=== PATIENT | female | born 1955 | race Hispanic/Latino ===

== ENCOUNTER 2016-12-10 09:43 | Inpatient (IN) | payer OTHER ==
--- NOTE | 2016-12-10 10:52 | C.PDOC ---
History Of Present Illness 61 y/o female pmhx vertigo, HTN sent to ED by PMD for evaluation of persistent dizziness and hypotension. Pt was evaluated inpatient for the same, discharged few weeks ago. Pt denies fever, chills, headache, SOB or any other complaints. Time Seen by Provider: 12/10/16 10:43 Chief Complaint (Nursing): Dizziness/Lightheaded History Per: Patient History/Exam Limitations: no limitations Onset/Duration Of Symptoms: Days Current Symptoms Are (Timing): Still Present Possible Causative Factor(s): Vertigo Fall Associated With With Symptoms: No Severity: Mild Recent travel outside of the [place]: No - Symptoms Of CVA Recent Head Trauma: No Past Medical History Reviewed: Historical Data, Nursing Documentation, Vital Signs Vital Signs: Last Vital Signs Temp 97.5 F L 12/10/16 14:36 Pulse 56 L 12/10/16 14:36 Resp 20 12/10/16 14:36 BP 136/73 12/10/16 14:36 Pulse Ox 100 12/10/16 14:50 - Medical History PMH: HTN, Hypothyroidism Surgical History: Cholecystectomy (2004) - [facility] Procedures MEASURE OF ARTERIAL PRESSURE, PERIPHERAL, 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 Constitutional: Negative for: Fever, Chills Respiratory: Negative for: Shortness of Breath Neurological: Positive for: Dizziness. Negative for: Headache Physical Exam - Physical Exam Appears: Non-toxic, No Acute Distress Skin: Warm, Dry, No Rash Head: Atraumatic, Normacephalic Ear(s): Bilateral: Normal Neck: Normal ROM, Supple Chest: Symmetrical Cardiovascular: Rhythm Regular, No Murmur Respiratory: Normal Breath Sounds, No Rales, No Rhonchi, No Wheezing Extremity: Normal ROM Extremity: Bilateral: Atraumatic Neurological/Psych: Oriented x3, Normal Speech, Normal Cognition, Normal Cranial Nerves, Normal Motor, Normal Sensation Gait: Steady ED Course And Treatment - Laboratory Results Result Diagrams: 12/10/16 11:31 12/10/16 11:31 O2 Sat by Pulse Oximetry: 100 (on room air) Pulse Ox Interpretation: Normal Medical Decision Making Medical Decision Making: Plan: EKG, labs, UA, IV fluids- pt sent in for eval by pmd [id number]: discussed with pmd, accepts for obs. Disposition - Disposition Disposition: HOSPITALIZED Disposition Time: 14:49 Condition: STABLE - Clinical Impression Clinical Impression: Chest pain - Scribe Statement The provider has reviewed the documentation as recorded by the Jennifer Solis Provider Attestation: All medical record entries made by the Jennifer were at my direction and personally dictated by me. I have reviewed the chart and agree that the record accurately reflects my personal performance of the history, physical exam, medical decision making, and the department course for this patient. I have also personally directed, reviewed, and agree with the discharge instructions and disposition. Decision To Admit - Pt Status Changed To: Hospital Disposition Of: Observation - . Bed Request Type: Regular Admitting Physician: Roderick Pool Patient Diagnosis: Dizziness, Vertigo
[2016-12-10 11:35] LABS: BASO # 0.1 K/uL (0.0-0.2); BASO % 1.1 % (0.0-2.0); EOS # 0.3 K/uL (0.0-0.7); EOS % 4.1 % (0.0-4.0); HEMATOCRIT 38.7 % (34.0-47.0); MEAN CELL VOLUME 85.6 fL (81.0-99.0); MEAN CORPUSCULAR HEMOGLOBIN 29.3 pg (27.0-31.0); MEAN CORPUSCULAR HGB CONC 34.2 g/dL (33.0-37.0); MEAN PLATELET VOLUME 7.4 fL (7.2-11.7); MONO # 0.7 K/uL (0.0-0.8); MONO % 8.2 % (0.0-10.0); NRBC % 0.1 % (0.0-2.0); RED CELL DISTRIBUTION WIDTH 13.3 % (11.5-14.5); WHITE BLOOD COUNT 8.1 K/uL (4.8-10.8)
[2016-12-10 11:41] LABS: URINE BILIRUBIN NEGATIVE (NEGATIVE); URINE BLOOD 2+ (NEGATIVE); URINE COLOR Yellow (YELLOW); URINE GLUCOSE (UA) NORMAL (Normal); URINE KETONE NEGATIVE (NEGATIVE); URINE LEUKOCYTE ESTERASE TRACE Leu/uL (Negative); URINE PROTEIN NEGATIVE (NEGATIVE); URINE UROBILINOGEN NORMAL mg/dL (0.2-1.0); WBC URINE 1 /hpf (0-5)
[2016-12-10 11:42] LABS: CHLORIDE 101 mmol/L (98-107); SODIUM 141 mmol/L (132-148)
[2016-12-10 11:43] LABS: POTASSIUM 3.5 mmol/L (3.6-5.2)
[2016-12-10 11:45] LABS: ALB/GLOB RATIO 1.3 (1.0-2.1); ALKALINE PHOSPHATASE 72 U/L (38-126); AST/SGOT 19 U/L (14-36); BILIRUBIN,TOTAL 0.5 mg/dL (0.2-1.3); CARBON DIOXIDE 24 mmol/L (22-30); GFR AFRICAN-AMERICAN > 60; INR 1.1; TOTAL PROTEIN 7.2 g/dL (6.3-8.3)
[2016-12-10 11:46] LABS: ALT/SGPT 11 U/L (9-52); BLOOD UREA NITROGEN 19 mg/dL (7-17); CALCIUM 9.3 mg/dl (8.6-10.4); GLUCOSE,RANDOM 122 mg/dL (65-105)
[2016-12-10 11:58] LABS: RBC URINE 4 /hpf (0-3)
[2016-12-10] MEDS ORDERED: SODIUM CHLORIDE 0.45% IV SCH (15:00)
[2016-12-10] MEDS ORDERED: POTASSIUM CHLORIDE IV SCH (15:00)
[2016-12-11] MEDS: Levothyroxine 25 MCG TAB PO SCH (05:48)
--- NOTE | 2016-12-11 11:33 | CP.PCM.CON ---
History of Present Illness - History of Present Illness History of Present Illness: 61 y/o female with Hx/o HTN & hypothyroidism is admitted for recurrent episodes of severe dizziness & hypotension. Blood pressure drops more often when she standing up for some time. BP med has been discontnued. Pt can not recall name of medication Pt denied flushing, palpitations Pt had neurological w/u on last admission MRI of brain was unremarkable Pt denied spinning sensation or worsening of dizziness on head turning Past Patient History - Infectious Disease Hx of Infectious Diseases: None - Past Medical History & Family History Past Medical History?: Yes - Past Social History Smoking Status: Never Smoked - CARDIAC Hx Cardiac Disorders: Yes Hx Hypertension: Yes - PULMONARY Hx Respiratory Disorders: No - NEUROLOGICAL Hx Neurological Disorder: Yes Hx Dizziness: Yes Hx Syncope: Yes Hx Vertigo: Yes - HEENT Hx HEENT Problems: No - RENAL Hx Chronic Kidney Disease: No - ENDOCRINE/METABOLIC Hx Endocrine Disorders: Yes Hx Hypothyroidism: Yes - HEMATOLOGICAL/ONCOLOGICAL Hx Blood Disorders: Yes Hx Blood Transfusions: Yes Hx Blood Transfusion Reaction: No Hx Cancer: Yes (right breast) Hx Chemotherapy: Yes - INTEGUMENTARY Hx Dermatological Problems: No - MUSCULOSKELETAL/RHEUMATOLOGICAL Hx Musculoskeletal Disorders: No Hx Falls: No - GASTROINTESTINAL Hx Gastrointestinal Disorders: No - GENITOURINARY/GYNECOLOGICAL Hx Genitourinary Disorders: No - PSYCHIATRIC Hx Psychophysiologic Disorder: No Hx Substance Use: No - SURGICAL HISTORY Hx Surgeries: Yes Hx Cholecystectomy: Yes (2004) - ANESTHESIA Hx Anesthesia: Yes Hx Anesthesia Reactions: No Hx Malignant Hyperthermia: No Meds Allergies/Adverse Reactions: Allergies Allergy/AdvReac Type Severity Reaction Status Date / Time No Known Allergies Allergy Verified 11/22/16 04:27 - Medications Medications: Current Medications Levothyroxine Sodium (Synthroid) 25 mcg PO DAILY@0630 [facility] Last Admin: 12/11/16 05:48 Dose: 25 mcg Topiramate (Topamax) 25 mg PO HS [facility] Last Admin: 12/10/16 22:04 Dose: 25 mg Physical Exam - Constitutional Appears: No Acute Distress Additional comments: A&O x3 - Head Exam Head Exam: ATRAUMATIC, NORMOCEPHALIC - Eye Exam Additional comments: No icterus - ENT Exam ENT Exam: Mucous Membranes Moist - Neck Exam Additional comments: Thyroid not palpable - Respiratory Exam Additional comments: ungs clear - Cardiovascular Exam Cardiovascular Exam: REGULAR RHYTHM - GI/Abdominal Exam GI & Abdominal Exam: Soft Additional comments: Nontender - Rectal Exam Rectal Exam: Deferred - Extremities Exam Additional comments: No edema clubbing or cyanosis Results - Vital Signs Recent Vital Signs: Last Vital Signs Temp 97.4 F L 12/11/16 07:00 Pulse 61 12/11/16 07:00 Resp 18 12/11/16 07:00 BP 150/87 12/11/16 07:00 Pulse Ox 95 12/11/16 07:00 - Labs Result Diagrams: 12/10/16 11:31 12/10/16 11:31 Assessment & Plan - Assessment and Plan (Free Text) Assessment: Dizziness . Previously diagnosed as Vertigo orthostatic hypotension . Consider sec to pheochromocytoma HTN Hypothyroidism Hx/o breast Ca & chemotherapy Plan: Will order urinary catecholamines Cortisol level TSH
--- NOTE | 2016-12-11 13:45 | CP.PCM.CON ---
<Javad North - Last Filed: 12/11/16 16:49> History of Present Illness - History of Present Illness History of Present Illness: Cardiology Consult- Dr. Pual's service Patient is a 61 year old female that presents to the hospital complaining of positional dizziness and syncope. She says that this has been a chronic problem since at least September of this year. She has had multiple admissions since then with workups including Head/Neck MRA, Head CT, Carotid doppler, Head CT, tilt table test, and echo which have returned normal. She says she was instructed by Dr. Pool and Dr. Linton to come in for further workup. She says last week, she decided to take a walk to her sisters home, which was about 1 block away, and she started feeling palpitations, which she said was new for her. PMHx: breast cancer in remission, tinnitus, vertigo, Meniere's disease, HTN, orthostatic hypotension, and hypothyroidism SHx: partial mastectomy, cholecystectomy ALL: NKDA Social Hx: denies tobacco use, drug use. Social alcohol use Family Hx: mother- breast cancer Review of Systems - Constitutional Constitutional: absent: Chills, Fever, Weakness - EENT Eyes: absent: Blurred Vision, Change in Vision - Cardiovascular Cardiovascular: Palpitations. absent: Chest Pain, Claudication, Irregular Heart Rhythm, Leg Edema, Pedal Edema - Respiratory Respiratory: absent: Cough, Dyspnea, Dyspnea on Exertion, Wheezing - Gastrointestinal Gastrointestinal: absent: Abdominal Pain, Constipation, Diarrhea, Nausea, Vomiting - Genitourinary Genitourinary: absent: Difficulty Urinating, Dysuria - Musculoskeletal Musculoskeletal: absent: Back Pain, Myalgias, Numbness, Tingling - Neurological Neurological: Numbness, Vertigo, Weakness. absent: Abnormal Hearing, Abnormal Movements, Tingling, Tremor - Psychiatric Psychiatric: absent: Anxiety, Panic Attacks, Suicidal Ideation, Tactile Hallucinations - Endocrine Endocrine: absent: Fatigue, Palpitations Past Patient History - Infectious Disease Hx of Infectious Diseases: None - Past Medical History & Family History Past Medical History?: Yes - Past Social History Smoking Status: Never Smoked Alcohol: Occasional Drugs: Denies - CARDIAC Hx Cardiac Disorders: Yes Hx Hypertension: Yes - PULMONARY Hx Respiratory Disorders: No - NEUROLOGICAL Hx Neurological Disorder: Yes Hx Dizziness: Yes Hx Syncope: Yes Hx Vertigo: Yes - HEENT Hx HEENT Problems: No - RENAL Hx Chronic Kidney Disease: No - ENDOCRINE/METABOLIC Hx Endocrine Disorders: Yes Hx Hypothyroidism: Yes - HEMATOLOGICAL/ONCOLOGICAL Hx Blood Disorders: Yes Hx Blood Transfusions: Yes Hx Blood Transfusion Reaction: No Hx Cancer: Yes (right breast) Hx Chemotherapy: Yes - INTEGUMENTARY Hx Dermatological Problems: No - MUSCULOSKELETAL/RHEUMATOLOGICAL Hx Musculoskeletal Disorders: No Hx Falls: No - GASTROINTESTINAL Hx Gastrointestinal Disorders: No - GENITOURINARY/GYNECOLOGICAL Hx Genitourinary Disorders: No - PSYCHIATRIC Hx Psychophysiologic Disorder: No Hx Substance Use: No - SURGICAL HISTORY Hx Surgeries: Yes Hx Cholecystectomy: Yes (2004) - ANESTHESIA Hx Anesthesia: Yes Hx Anesthesia Reactions: No Hx Malignant Hyperthermia: No Meds Allergies/Adverse Reactions: Allergies Allergy/AdvReac Type Severity Reaction Status Date / Time No Known Allergies Allergy Verified 11/22/16 04:27 - Medications Medications: Current Medications Levothyroxine Sodium (Synthroid) 25 mcg PO DAILY@0630 [facility] Last Admin: 12/11/16 05:48 Dose: 25 mcg Topiramate (Topamax) 25 mg PO [facility] Last Admin: 12/10/16 22:04 Dose: 25 mg Physical Exam - Constitutional Appears: Non-toxic, No Acute Distress - Head Exam Head Exam: ATRAUMATIC, NORMAL INSPECTION, NORMOCEPHALIC - Eye Exam Pupil Exam: NORMAL ACCOMODATION, PERRL - ENT Exam ENT Exam: Mucous Membranes Moist - Respiratory Exam Respiratory Exam: Clear to Auscultation Bilateral, NORMAL BREATHING PATTERN. absent: Prolonged Expiratory Phase, Rales, Rhonchi, Wheezes - Cardiovascular Exam Cardiovascular Exam: REGULAR RHYTHM, +S1, +S2 - GI/Abdominal Exam GI & Abdominal Exam: Normal Bowel Sounds, Soft. absent: Firm, Guarding, Hyperactive Bowel Sounds, Tenderness - Extremities Exam Extremities exam: Positive for: normal capillary refill, pedal pulses present - Neurological Exam Neurological exam: Alert, CN II-XII Intact, Oriented x3 - Psychiatric Exam Psychiatric exam: Normal Affect - Skin Skin Exam: Dry, Intact, Normal Color, Warm Results - Vital Signs Recent Vital Signs: Last Vital Signs Temp 97.4 F L 12/11/16 07:00 Pulse 61 12/11/16 07:00 Resp 18 12/11/16 07:00 BP 150/87 12/11/16 07:00 Pulse Ox 95 12/11/16 07:00 - Labs Result Diagrams: 12/10/16 11:31 12/10/16 11:31 Assessment & Plan (1) Dizziness Status: Acute Comment: Echo- 11/09/16- Normal. Tilt table test -11/13/16- negative. placed on telemetry. Ordered EKG. NPO after MN for nuclear stress test tomorrow AM (2) Hypertension Status: Acute Comment: Hold all BP medications for now due to sudden episodes of orthostatic hypotension. <Brianne Truong - Last Filed: 12/13/16 20:26> Meds - Medications Medications: Current Medications Fludrocortisone Acetate (Florinef) 0.1 mg PO DAILY [facility] Last Admin: 12/13/16 17:34 Dose: 0.1 mg Levothyroxine Sodium (Synthroid) 25 mcg PO DAILY@0630 [facility] Last Admin: 12/13/16 05:55 Dose: 25 mcg Nitroglycerin (Nitro-Dur 0.1 Mg/Hr Patch) 1 patch TD HS [facility] Topiramate (Topamax) 25 mg PO HS [facility] Last Admin: 12/12/16 21:29 Dose: 25 mg Zolpidem Tartrate (Ambien) 5 mg PO HS PRN PRN Reason: Insomnia Last Admin: 12/12/16 22:17 Dose: 5 mg Results - Vital Signs Recent Vital Signs: Last Vital Signs Temp 99 F 12/13/16 15:38 Pulse 70 12/13/16 15:38 Resp 18 12/13/16 15:38 BP 135/80 12/13/16 15:38 Pulse Ox 98 12/13/16 15:38 - Labs Result Diagrams: 12/13/16 06:04 12/13/16 06:04 Labs: Laboratory Results - last 24 hr 12/13/16 12/13/16 06:04 15:25 WBC 7.3 RBC 4.26 Hgb 12.8 Hct 36.1 MCV 84.7 MCH 30.0 MCHC 35.5 RDW 13.4 Plt Count 279 MPV 7.3 Neut % (Auto) 49.2 L Lymph % (Auto) 32.5 [place] % (Auto) 11.6 H Eos % (Auto) 5.4 H Baso % (Auto) 1.3 Neut # 3.6 Lymph # 2.4 [place] # 0.9 H Eos # 0.4 Baso # 0.1 Sodium 142 Potassium 3.6 Chloride 102 Carbon Dioxide 25 Anion Gap 20 BUN 19 H Creatinine 0.8 Est GFR ( Amer) > 60 Est GFR (Non-Af Amer) > 60 Random Glucose 85 Calcium 8.9 Total Bilirubin 0.6 AST 21 ALT 14 Alkaline Phosphatase 65 Total Protein 6.4 Albumin 3.6 Globulin 2.7 Albumin/Globulin Ratio 1.3 Urine Color Yellow Urine Clarity Clear Urine pH 6.0 Ur Specific [place] 1.014 Urine Protein Negative Urine Glucose (UA) Normal Urine Ketones Negative Urine Blood 2+ H Urine Nitrate Negative Urine Bilirubin Negative Urine Urobilinogen Normal Ur Leukocyte Esterase Neg Urine WBC (Auto) 1 Urine RBC (Auto) 2 Ur Squamous Epith Cells < 1 Attending/Attestation - Attestation I have personally seen and examined this patient.: Yes I have fully participated in the care of the patient.: Yes I have reviewed all pertinent clinical information: Yes Notes (Text): 12/13/16 20:26 pt will need nuclear stress to r/o ischemia hold bp med for now
--- NOTE | 2016-12-11 21:09 | CP.PCM.HP ---
History of Present Illness - History of Present Illness History of Present Illness: worsening headache and dizziness History present illness: 61-year-old female with a history of Mnire's disease, hypertension, recurrent weakness. Patient came to the emergency room with increasing episodes of nausea headache vomiting and associated with the dizziness. Patient started having the symptoms of increasing dizziness and tinnitus recently. Patient has a chronic symptoms, but got worse within the last 2-3 days. She was doing okay as an outpatient for 2 weeks. But 2 days ago symptoms got worse, she started having more headache, last night got worse. And able to eat, associated with nausea, not able to eat well. Her blood pressure was very labile. Episodes of hypertension, low blood pressure. No chest pain. But dizziness noted. The emergency room patient was given Zofran, IV fluid but she persistently having symptoms, she needed hospitalization. Past medical history: Hypertension hypothyroidism tinnitus, Mnire's disease Allergy no known drug allergy Personal history: Nonsmoker nonalcoholic Family history noncontributory Allergies: No known drug allergy: Surgical history: Patient has a history of breast cancer surgery in the past Review of system noted from the chart On examination: Vital signs reviewed Chest bilateral good air entry, regular heart sound nontender abdomen [employer] alert awake oriented 3 no functional neurological deficit. Labs reviewed Assessment and recommendation: 61-year-old female with a history of hypertension and Mnire's disease tinnitus chronic hypothyroidism and depression came to the emergency room with increasing episodes of nausea and vomiting. worsening orthostasis. Worsening migraine. Severe headache. We'll get IV fluid. Control the blood pressuNeurological evaluation. We'll follow the patie Closely monitor the patient neurologically, uncontrolled hypertension. On medications. Continue the Zofran, IV fluid, will start the patient on prednisone. [employer] disease cannot be ruled out. Neurological evaluation if needed and will follow the patient Present on Admission - Present on Admission Any Indicators Present on Admission: No History of DVT/PE: No History of Uncontrolled Diabetes: No Urinary Catheter: No Decubitus Ulcer Present: No Past Patient History - Infectious Disease Hx of Infectious Diseases: None - Past Medical History & Family History Past Medical History?: Yes - Past Social History Smoking Status: Never Smoked Alcohol: Occasional Drugs: Denies - CARDIAC Hx Cardiac Disorders: Yes Hx Hypertension: Yes - PULMONARY Hx Respiratory Disorders: No - NEUROLOGICAL Hx Neurological Disorder: Yes Hx Dizziness: Yes Hx Syncope: Yes Hx Vertigo: Yes - HEENT Hx HEENT Problems: No - RENAL Hx Chronic Kidney Disease: No - ENDOCRINE/METABOLIC Hx Endocrine Disorders: Yes Hx Hypothyroidism: Yes - HEMATOLOGICAL/ONCOLOGICAL Hx Blood Disorders: Yes Hx Blood Transfusions: Yes Hx Blood Transfusion Reaction: No Hx Cancer: Yes (right breast) Hx Chemotherapy: Yes - INTEGUMENTARY Hx Dermatological Problems: No - MUSCULOSKELETAL/RHEUMATOLOGICAL Hx Musculoskeletal Disorders: No Hx Falls: No - GASTROINTESTINAL Hx Gastrointestinal Disorders: No - GENITOURINARY/GYNECOLOGICAL Hx Genitourinary Disorders: No - PSYCHIATRIC Hx Psychophysiologic Disorder: No Hx Substance Use: No - SURGICAL HISTORY Hx Surgeries: Yes Hx Cholecystectomy: Yes (2004) - ANESTHESIA Hx Anesthesia: Yes Hx Anesthesia Reactions: No Hx Malignant Hyperthermia: No Meds Home Medications: Home Medication List Medication Instructions Recorded Confirmed Type Levothyroxine [Synthroid] 25 mcg PO DAILY@0630 #30 tab 12/24/16 Rx Midodrine [Proamatine] 2.5 mg PO DAILY #30 tab 12/24/16 Rx Topiramate [Topamax] 25 mg PO BID #60 tab 12/24/16 Rx Allergies/Adverse Reactions: Allergies Allergy/AdvReac Type Severity Reaction Status Date / Time No Known Allergies Allergy Verified 01/23/17 20:23 Results - Vital Signs Recent Vital Signs: Last Vital Signs Temp 98.3 F 12/11/16 17:10 Pulse 70 12/11/16 17:10 Resp 20 12/11/16 17:10 BP 122/74 12/11/16 17:10 Pulse Ox 96 12/11/16 17:10 - Labs Result Diagrams: 12/14/16 06:59 12/14/16 06:59 Labs: Laboratory Results - last 24 hr 12/11/16 13:50 TSH 3rd Generation 0.85
[2016-12-12] MEDS: Levothyroxine 25 MCG TAB PO SCH (05:41)
[2016-12-12 06:23] LABS: BASO # 0.1 K/uL (0.0-0.2); BASO % 1.2 % (0.0-2.0); EOS # 0.4 K/uL (0.0-0.7); EOS % 6.3 % (0.0-4.0); HEMATOCRIT 35.9 % (34.0-47.0); LYMPH # 2.4 K/uL (1.0-4.3); LYMPH % 34.7 % (20.0-40.0); MEAN CELL VOLUME 84.7 fL (81.0-99.0); MEAN CORPUSCULAR HEMOGLOBIN 29.6 pg (27.0-31.0); MEAN PLATELET VOLUME 7.6 fL (7.2-11.7); MONO # 0.8 K/uL (0.0-0.8); MONO % 12.2 % (0.0-10.0); NRBC % 0.1 % (0.0-2.0); RED CELL DISTRIBUTION WIDTH 13.5 % (11.5-14.5); WHITE BLOOD COUNT 6.9 K/uL (4.8-10.8)
[2016-12-12 06:32] LABS: CHLORIDE 102 mmol/L (98-107); SODIUM 140 mmol/L (132-148)
[2016-12-12 06:33] LABS: POTASSIUM 3.4 mmol/L (3.6-5.2)
[2016-12-12 06:35] LABS: ALB/GLOB RATIO 1.3 (1.0-2.1); ALKALINE PHOSPHATASE 61 U/L (38-126); ALT/SGPT 15 U/L (9-52); AST/SGOT 17 U/L (14-36); BILIRUBIN,TOTAL 0.3 mg/dL (0.2-1.3); BLOOD UREA NITROGEN 20 mg/dL (7-17); CARBON DIOXIDE 24 mmol/L (22-30); GFR AFRICAN-AMERICAN > 60; GLUCOSE,RANDOM 82 mg/dL (65-105); TOTAL PROTEIN 6.3 g/dL (6.3-8.3)
[2016-12-12 07:04] LABS: CORTISOL AM 5.4 ug/dL (4.46-22.7)
--- NOTE | 2016-12-12 09:50 | CP.PCM.PN ---
<Seema Moreno - Last Filed: 12/12/16 09:46> Subjective - Date & Time of Evaluation Date of Evaluation: 12/12/16 Time of Evaluation: 07:40 - Subjective Subjective: Cardiology Progress Note for Dr. Truong Patient seen and examined at bedside. As per nursing, there were no acute overnight events. She reports feeling OK today. She denies having any dizziness. She also denies having CP, SOB, pain, n/v/d, numbness/tingling, or vision changes. Objective - Vital Signs/Intake and Output Vital Signs (last 24 hours): Temp Pulse Resp BP Pulse Ox 98.2 F 68 20 122/75 97 12/12/16 00:00 12/12/16 00:00 12/12/16 00:00 12/12/16 00:00 12/12/16 00:00 Intake and Output: 12/12/16 12/12/16 06:59 18:59 Intake Total 50 Balance 50 - Medications Medications: Current Medications Levothyroxine Sodium (Synthroid) 25 mcg PO DAILY@0630 [facility] Last Admin: 12/12/16 05:41 Dose: 25 mcg Topiramate (Topamax) 25 mg PO HS [facility] Last Admin: 12/11/16 21:23 Dose: 25 mg Zolpidem Tartrate (Ambien) 5 mg PO HS PRN PRN Reason: Insomnia Last Admin: 12/11/16 21:23 Dose: 5 mg - Labs Labs: 12/12/16 06:10 12/12/16 06:10 PT 12.0 SECONDS (9.7-12.2) 12/10/16 11:31 INR 1.1 12/10/16 11:31 APTT 33 SECONDS (21-34) 12/10/16 11:31 - Constitutional Appears: No Acute Distress - Head Exam Head Exam: ATRAUMATIC, NORMAL INSPECTION, NORMOCEPHALIC - Eye Exam Eye Exam: Normal appearance Pupil Exam: NORMAL ACCOMODATION - ENT Exam ENT Exam: Mucous Membranes Moist - Respiratory Exam Respiratory Exam: Clear to Ausculation Bilateral, NORMAL BREATHING PATTERN. absent: Rales, Rhonchi, Wheezes - Cardiovascular Exam Cardiovascular Exam: REGULAR RHYTHM, +S1, +S2. absent: Gallop, Rubs, Murmur - GI/Abdominal Exam GI & Abdominal Exam: Soft, Normal Bowel Sounds. absent: Rigid, Tenderness, Mass , Rebound - Extremities Exam Extremities Exam: Normal Inspection. absent: Calf Tenderness, Pedal Edema - Neurological Exam Neurological Exam: Alert, Awake, CN II-XII Intact, Oriented x3 - Psychiatric Exam Psychiatric exam: Normal Affect, Normal Mood - Skin Skin Exam: Dry, Normal Color, Warm Assessment and Plan - Assessment and Plan (Free Text) Assessment: This is a 61Y F with PMH vertigo, Meniere's disease, HTN, orthostatic hypotension, HTN, hypothyroidism and breast cancer (in remission) admitted for 1) Dizziness 2) HTN 3) Hypothyroidism 4) Orthostatic hypotension - confirmed on orthostatics Plan: - Nuclear stress test this AM- normal stress test - Echo on 10/2016 normal - Tilt table 10/2016 negative - EKG showed NSR - BP meds on hold for orthostatic hypotension - Continue synthroid DVT ppx: SCDs Case seen, reviewed and discussed with Dr. Alexi Moreno PGY1 <Brianne Truong A - Last Filed: 12/13/16 20:27> Objective - Vital Signs/Intake and Output Vital Signs (last 24 hours): Temp Pulse Resp BP Pulse Ox 99 F 70 18 135/80 98 12/13/16 15:38 12/13/16 15:38 12/13/16 15:38 12/13/16 15:38 12/13/16 15:38 - Medications Medications: Current Medications Fludrocortisone Acetate (Florinef) 0.1 mg PO DAILY [facility] Last Admin: 12/13/16 17:34 Dose: 0.1 mg Levothyroxine Sodium (Synthroid) 25 mcg PO DAILY@0630 [facility] Last Admin: 12/13/16 05:55 Dose: 25 mcg Nitroglycerin (Nitro-Dur 0.1 Mg/Hr Patch) 1 patch TD HS [facility] Topiramate (Topamax) 25 mg PO HS [facility] Last Admin: 12/12/16 21:29 Dose: 25 mg Zolpidem Tartrate (Ambien) 5 mg PO HS PRN PRN Reason: Insomnia Last Admin: 12/12/16 22:17 Dose: 5 mg - Labs Labs: 12/13/16 06:04 12/13/16 06:04 PT 12.0 SECONDS (9.7-12.2) 12/10/16 11:31 INR 1.1 12/10/16 11:31 APTT 33 SECONDS (21-34) 12/10/16 11:31 Attending/Attestation - Attestation I have personally seen and examined this patient.: Yes I have fully participated in the care of the patient.: Yes I have reviewed all pertinent clinical information, including history, physical exam and plan: Yes Notes (Text): 12/13/16 20:27 BP stable ambulating
--- NOTE | 2016-12-12 18:12 | CP.PCM.PN ---
Subjective - Date & Time of Evaluation Date of Evaluation: 12/12/16 Time of Evaluation: 06:10 - Subjective Subjective: Still feels dizzy after standing for too long Objective - Vital Signs/Intake and Output Vital Signs (last 24 hours): Temp Pulse Resp BP Pulse Ox 98.6 F 80 20 108/64 99 12/12/16 16:45 12/12/16 16:45 12/12/16 16:45 12/12/16 16:45 12/12/16 16:45 - Medications Medications: Current Medications Levothyroxine Sodium (Synthroid) 25 mcg PO DAILY@0630 [facility] Last Admin: 12/12/16 05:41 Dose: 25 mcg Topiramate (Topamax) 25 mg PO HS [facility] Last Admin: 12/11/16 21:23 Dose: 25 mg Zolpidem Tartrate (Ambien) 5 mg PO HS PRN PRN Reason: Insomnia Last Admin: 12/11/16 21:23 Dose: 5 mg - Labs Labs: PT 12.0 SECONDS (9.7-12.2) 12/10/16 11:31 INR 1.1 12/10/16 11:31 APTT 33 SECONDS (21-34) 12/10/16 11:31 - Respiratory Exam Additional comments: Lungs clear - Cardiovascular Exam Cardiovascular Exam: REGULAR RHYTHM - Extremities Exam Additional comments: No edema Assessment and Plan - Assessment and Plan (Free Text) Assessment: Orthostatic hypotension catecholamine results are pending Low normal cortisol level Hypothyroidism Plan: Suggest Endocrinology evaluation for low cortisol level Awaitind urine studies for CATS
--- NOTE | 2016-12-12 22:57 | CP.PCM.PN ---
Subjective - Date & Time of Evaluation Date of Evaluation: 12/12/16 Time of Evaluation: 22:56 - Subjective Subjective: Patient is still having dizziness. Orthostatic hypotension noted. Underwent stress test today. Clinically otherwise stable. Temp Pulse Resp BP Pulse Ox 98.6 F 80 20 108/64 99 12/12/16 16:45 12/12/16 16:45 12/12/16 16:45 12/12/16 16:45 12/12/16 16:45 Chest good air entry bilaterally regular heart sound nontender abdomen no pedal edema [employer] alert awake oriented 3 no functional neurological deficit Pending stress test results. Serum cortisol is normal. We'll continue to monitor the blood pressure, and the morning we will decide for the definite treatment, and will plan further treatment after that Objective - Vital Signs/Intake and Output Vital Signs (last 24 hours): Temp Pulse Resp BP Pulse Ox 98.6 F 80 20 108/64 99 12/12/16 16:45 12/12/16 16:45 12/12/16 16:45 12/12/16 16:45 12/12/16 16:45 Intake and Output: 12/12/16 12/13/16 18:59 06:59 Intake Total 480 Balance 480 - Medications Medications: Current Medications Levothyroxine Sodium (Synthroid) 25 mcg PO DAILY@0630 [facility] Last Admin: 12/12/16 05:41 Dose: 25 mcg Topiramate (Topamax) 25 mg PO HS [facility] Last Admin: 12/12/16 21:29 Dose: 25 mg Zolpidem Tartrate (Ambien) 5 mg PO HS PRN PRN Reason: Insomnia Last Admin: 12/12/16 22:17 Dose: 5 mg - Labs Labs: PT 12.0 SECONDS (9.7-12.2) 12/10/16 11:31 INR 1.1 12/10/16 11:31 APTT 33 SECONDS (21-34) 12/10/16 11:31
--- NOTE | 2016-12-12 23:03 | CP.PCM.CON ---
History of Present Illness - History of Present Illness History of Present Illness: Patient seen and evaluated Still has dizziness Normal stress test Past Patient History - Infectious Disease Hx of Infectious Diseases: None - Past Medical History & Family History Past Medical History?: Yes - Past Social History Smoking Status: Never Smoked Alcohol: Occasional Drugs: Denies - CARDIAC Hx Cardiac Disorders: Yes Hx Hypertension: Yes - PULMONARY Hx Respiratory Disorders: No - NEUROLOGICAL Hx Neurological Disorder: Yes Hx Dizziness: Yes Hx Syncope: Yes Hx Vertigo: Yes - HEENT Hx HEENT Problems: No - RENAL Hx Chronic Kidney Disease: No - ENDOCRINE/METABOLIC Hx Endocrine Disorders: Yes Hx Hypothyroidism: Yes - HEMATOLOGICAL/ONCOLOGICAL Hx Blood Disorders: Yes Hx Blood Transfusions: Yes Hx Blood Transfusion Reaction: No Hx Cancer: Yes (right breast) Hx Chemotherapy: Yes - INTEGUMENTARY Hx Dermatological Problems: No - MUSCULOSKELETAL/RHEUMATOLOGICAL Hx Musculoskeletal Disorders: No Hx Falls: No - GASTROINTESTINAL Hx Gastrointestinal Disorders: No - GENITOURINARY/GYNECOLOGICAL Hx Genitourinary Disorders: No - PSYCHIATRIC Hx Psychophysiologic Disorder: No Hx Substance Use: No - SURGICAL HISTORY Hx Surgeries: Yes Hx Cholecystectomy: Yes (2004) - ANESTHESIA Hx Anesthesia: Yes Hx Anesthesia Reactions: No Hx Malignant Hyperthermia: No Meds Allergies/Adverse Reactions: Allergies Allergy/AdvReac Type Severity Reaction Status Date / Time No Known Allergies Allergy Verified 11/22/16 04:27 - Medications Medications: Current Medications Levothyroxine Sodium (Synthroid) 25 mcg PO DAILY@0630 [facility] Last Admin: 12/12/16 05:41 Dose: 25 mcg Topiramate (Topamax) 25 mg PO HS [facility] Last Admin: 12/12/16 21:29 Dose: 25 mg Zolpidem Tartrate (Ambien) 5 mg PO HS PRN PRN Reason: Insomnia Last Admin: 12/12/16 22:17 Dose: 5 mg Results - Vital Signs Recent Vital Signs: Last Vital Signs Temp 98.6 F 12/12/16 16:45 Pulse 80 12/12/16 16:45 Resp 20 12/12/16 16:45 BP 108/64 12/12/16 16:45 Pulse Ox 99 12/12/16 16:45 - Labs Result Diagrams: 12/12/16 06:10 12/12/16 06:10
[2016-12-13] MEDS: Levothyroxine 25 MCG TAB PO SCH (05:55)
[2016-12-13 06:20] LABS: BASO # 0.1 K/uL (0.0-0.2); BASO % 1.3 % (0.0-2.0); EOS # 0.4 K/uL (0.0-0.7); EOS % 5.4 % (0.0-4.0); HEMATOCRIT 36.1 % (34.0-47.0); LYMPH # 2.4 K/uL (1.0-4.3); LYMPH % 32.5 % (20.0-40.0); MEAN CELL VOLUME 84.7 fL (81.0-99.0); MEAN CORPUSCULAR HGB CONC 35.5 g/dL (33.0-37.0); MEAN PLATELET VOLUME 7.3 fL (7.2-11.7); MONO # 0.9 K/uL (0.0-0.8); MONO % 11.6 % (0.0-10.0); NRBC % 0.3 % (0.0-2.0); RED CELL DISTRIBUTION WIDTH 13.4 % (11.5-14.5); WHITE BLOOD COUNT 7.3 K/uL (4.8-10.8)
[2016-12-13 06:41] LABS: CHLORIDE 102 mmol/L (98-107); POTASSIUM 3.6 mmol/L (3.6-5.2); SODIUM 142 mmol/L (132-148)
[2016-12-13 06:43] LABS: BILIRUBIN,TOTAL 0.6 mg/dL (0.2-1.3); CARBON DIOXIDE 25 mmol/L (22-30); GFR AFRICAN-AMERICAN > 60
[2016-12-13 06:44] LABS: ALB/GLOB RATIO 1.3 (1.0-2.1); ALKALINE PHOSPHATASE 65 U/L (38-126); ALT/SGPT 14 U/L (9-52); AST/SGOT 21 U/L (14-36); BLOOD UREA NITROGEN 19 mg/dL (7-17); CALCIUM 8.9 mg/dl (8.6-10.4); GLUCOSE,RANDOM 85 mg/dL (65-105); TOTAL PROTEIN 6.4 g/dL (6.3-8.3)
--- NOTE | 2016-12-13 10:23 | CP.PCM.PN ---
<ArminSeema levine - Last Filed: 12/13/16 10:19> Subjective - Date & Time of Evaluation Date of Evaluation: 12/13/16 Time of Evaluation: 07:45 - Subjective Subjective: Cardiology Progress Note for Dr. Truong Patient seen and examined at bedside. There were no acute overnight events. Patient reports she does not feel dizzy, but she has not tried to walk around yet. She denies CP, pain, SOB, n/v/d, numbness/tingling, dysuria or hematuria. Objective - Vital Signs/Intake and Output Vital Signs (last 24 hours): Temp Pulse Resp BP Pulse Ox 98.0 F 62 20 101/70 95 12/13/16 08:30 12/13/16 08:30 12/13/16 08:30 12/13/16 08:30 12/13/16 08:30 Intake and Output: 12/13/16 12/13/16 06:59 18:59 Intake Total 630 Balance 630 - Medications Medications: Current Medications Levothyroxine Sodium (Synthroid) 25 mcg PO DAILY@0630 [facility] Last Admin: 12/13/16 05:55 Dose: 25 mcg Topiramate (Topamax) 25 mg PO HS [facility] Last Admin: 12/12/16 21:29 Dose: 25 mg Zolpidem Tartrate (Ambien) 5 mg PO HS PRN PRN Reason: Insomnia Last Admin: 12/12/16 22:17 Dose: 5 mg - Labs Labs: 12/13/16 06:04 12/13/16 06:04 PT 12.0 SECONDS (9.7-12.2) 12/10/16 11:31 INR 1.1 12/10/16 11:31 APTT 33 SECONDS (21-34) 12/10/16 11:31 - Constitutional Appears: No Acute Distress - Head Exam Head Exam: ATRAUMATIC, NORMAL INSPECTION, NORMOCEPHALIC - Eye Exam Eye Exam: Normal appearance Pupil Exam: NORMAL ACCOMODATION - ENT Exam ENT Exam: Mucous Membranes Moist - Neck Exam Neck Exam: Full ROM - Respiratory Exam Respiratory Exam: Clear to Ausculation Bilateral, NORMAL BREATHING PATTERN. absent: Rales, Rhonchi, Wheezes, Stridor - Cardiovascular Exam Cardiovascular Exam: REGULAR RHYTHM, +S1, +S2. absent: Gallop, Rubs, Murmur - GI/Abdominal Exam GI & Abdominal Exam: Soft, Normal Bowel Sounds. absent: Guarding, Rigid, Tenderness, Mass, Rebound - Extremities Exam Extremities Exam: Full ROM, Normal Inspection. absent: Calf Tenderness, Pedal Edema - Neurological Exam Neurological Exam: Alert, Awake, CN II-XII Intact, Oriented x3 - Psychiatric Exam Psychiatric exam: Normal Affect, Normal Mood - Skin Skin Exam: Dry, Normal Color, Warm Assessment and Plan - Assessment and Plan (Free Text) Assessment: This is a 61Y F with PMH vertigo, Meniere's disease, HTN, orthostatic hypotension, HTN, hypothyroidism and breast cancer (in remission) admitted for 1) Dizziness 2) HTN 3) Hypothyroidism 4) Orthostatic hypotension Plan: - Stress test, tilt table and echo all within normal limits - Continue to hold BP meds for orthostatic hypotension - BP meds on hold for orthostatic hypotension - Continue Synthroid DVT ppx: SCDs Case seen, reviewed and discussed with Dr. Alexi Moreno PGY1 <Brianne Truong - Last Filed: 12/13/16 20:25> Objective - Vital Signs/Intake and Output Vital Signs (last 24 hours): Temp Pulse Resp BP Pulse Ox 99 F 70 18 135/80 98 12/13/16 15:38 12/13/16 15:38 12/13/16 15:38 12/13/16 15:38 12/13/16 15:38 - Medications Medications: Current Medications Fludrocortisone Acetate (Florinef) 0.1 mg PO DAILY [facility] Last Admin: 12/13/16 17:34 Dose: 0.1 mg Levothyroxine Sodium (Synthroid) 25 mcg PO DAILY@0630 [facility] Last Admin: 12/13/16 05:55 Dose: 25 mcg Nitroglycerin (Nitro-Dur 0.1 Mg/Hr Patch) 1 patch TD HS [facility] Topiramate (Topamax) 25 mg PO HS [facility] Last Admin: 12/12/16 21:29 Dose: 25 mg Zolpidem Tartrate (Ambien) 5 mg PO HS PRN PRN Reason: Insomnia Last Admin: 12/12/16 22:17 Dose: 5 mg - Labs Labs: 12/13/16 06:04 12/13/16 06:04 PT 12.0 SECONDS (9.7-12.2) 12/10/16 11:31 INR 1.1 12/10/16 11:31 APTT 33 SECONDS (21-34) 12/10/16 11:31 Attending/Attestation - Attestation I have personally seen and examined this patient.: Yes I have fully participated in the care of the patient.: Yes I have reviewed all pertinent clinical information, including history, physical exam and plan: Yes Notes (Text): 12/13/16 20:24 hold meds for bp bp stable tolerating po negative stress
--- NOTE | 2016-12-13 12:04 | CP.PCM.PN ---
Subjective - Date & Time of Evaluation Date of Evaluation: 12/13/16 Time of Evaluation: 11:00 - Subjective Subjective: C/o lightheadedness Objective - Vital Signs/Intake and Output Vital Signs (last 24 hours): Temp Pulse Resp BP Pulse Ox 98.0 F 62 20 101/70 95 12/13/16 08:30 12/13/16 08:30 12/13/16 08:30 12/13/16 08:30 12/13/16 08:30 Intake and Output: 12/13/16 12/13/16 06:59 18:59 Intake Total 630 Balance 630 - Medications Medications: Current Medications Levothyroxine Sodium (Synthroid) 25 mcg PO DAILY@0630 [facility] Last Admin: 12/13/16 05:55 Dose: 25 mcg Topiramate (Topamax) 25 mg PO HS [facility] Last Admin: 12/12/16 21:29 Dose: 25 mg Zolpidem Tartrate (Ambien) 5 mg PO HS PRN PRN Reason: Insomnia Last Admin: 12/12/16 22:17 Dose: 5 mg - Labs Labs: 12/13/16 06:04 12/13/16 06:04 PT 12.0 SECONDS (9.7-12.2) 12/10/16 11:31 INR 1.1 12/10/16 11:31 APTT 33 SECONDS (21-34) 12/10/16 11:31 - Respiratory Exam Additional comments: Lungs clear - Cardiovascular Exam Cardiovascular Exam: REGULAR RHYTHM - Extremities Exam Additional comments: no edema Assessment and Plan - Assessment and Plan (Free Text) Assessment: Significant Orthostatic hypotension Low normal cortisol level Plan: Awaiting urine catecholamines results Cardiology w/u in progress
[2016-12-13] MEDS ORDERED: Potassium Chloride 20 mEq/15 ml LIQ UD PO STA (13:41)
[2016-12-13 15:35] LABS: RBC URINE 2 /hpf (0-3); URINE BILIRUBIN NEGATIVE (NEGATIVE); URINE BLOOD 2+ (NEGATIVE); URINE COLOR Yellow (YELLOW); URINE GLUCOSE (UA) NORMAL (Normal); URINE KETONE NEGATIVE (NEGATIVE); URINE LEUKOCYTE ESTERASE NEG Leu/uL (Negative); URINE PROTEIN NEGATIVE (NEGATIVE); URINE UROBILINOGEN NORMAL mg/dL (0.2-1.0); WBC URINE 1 /hpf (0-5)
--- NOTE | 2016-12-13 19:41 | CARD ---
APPROVED REPORT Protocol: PHARMACOLOGICAL STRESS Test Type: LEXISCAN Test Indications: DIZZINESS,VERTIGO Medications: LIST SCAN Medical History: DIZZINESS, VERTIGO Target HR: 160 bpm Resting ECG: normal Resting Heart Rate: 65 bpm Resting Blood Pressure: 122/74mmHg submaximum (85%): 136 bpm TEST SUMMARY [id number]/[id number]. INFUSIONDOSE 100:[id number]/74.0. [id number]/80.0. PROCEDURE Pharmacologic stress testing was performed using 0.4mg per 5ml of regadenoson given intravenously over 7-10 seconds. Reversal agent aminophyline 125 mg, given intravenously for Dizziness. POST EXERCISE Reason for Termination: PROTOCAL ENDED Target HR: No Max HR: 73 bpm 70% of Maximum Predicted HR: 160 bpm Exercise duration: 00:32 min:sec, 0 Stage Exercise capacity: 1.0METs Max Blood Pressure: 148/80mmHg Blood Pressure response to exercise: normal resting BP - appropriate response Heart Rate response to exercise: appropriate Chest Pain: No, none Angina index: 0 Arrhythmia: No, none ST Change: No, none Deviation: 0 mm INTERPRETATION Stress EKG Conclusion: NL ECG NUCLEAR PENDING EXAM: Myocardial Perfusion STRESS/REST Imaging Protocol The imaging protocol used to acquire images was Stress Tc-99m/rest Tc-99m 1 day Stress Spect myocardial perfusion imaging was performed in supine position 41 minutes following the injection of 13 mCi of Tc-99 Myoview. Gated Rest Spect was performed 40 minutes after intravenous 32.4 mCi Tc-99 Myoview injection. The images were gated to evaluate regional wall motion and calculate ventricular ejection fraction.Images were reconstructed using backfilter projection method in short horizontal and verticle long axis. Spect slices were generated. RESTING DATA EST214.92uyWV7.40L/min ESV44.00mlMyocardial Widj808.00g Av. Heart Rate57.00bpm EF57.00% STRESS DATA TMV118.80veDW4.20L/min ESV51.00mlMyocardial Nmqn486.00g EF50.00% Regional WT score at stress:2.00 Regional WM score at stress:0.00 Summed WT score at stress:15.00 Av. Heart Rate62.00bpmSummed WM score at stress:19.00 LV Perf. Quant 17 Seg. SSS0.00 17 Seg. SRS0.00 17 Seg. SDS0.00 Stress Defect Extent (% LAD)0.00Rest Defect Extent (% LAD)0.00Rev. Defect Extent (% LAD)0.00 Stress Defect Extent (% LCX)0.00Rest Defect Extent (% LCX)0.00Rev. Defect Extent (% LCX)0.00 Stress Defect Extent (% RCA)0.00Rest Defect Extent (% RCA)0.00Rev. Defect Extent (% RCA)0.00 Stress Defect Extent (% SHERRILL)0.00Rest Defect Extent (% SHERRILL)0.00Rev. Defect Extent (% SHERRILL)0.00 Other Information Quality:Good Overall Exercise Capacity: Good IMPRESSION Normal Myocardial Perfusion exercise stress study Global LV Function: Normal Stress Test Summary: Normal LV Perfusion Summary: Normal Metabolism/Perfusion There are no defects. Conclusion 1. The stress and resting images show normal perfusion.
[2016-12-13] MEDS: Nitroglycerin 0.1 mg/hr Top Patch TD SCH (21:53)
[2016-12-13 23:03] LABS: TOTAL VOLUME 1225 mL/24 h (())
[2016-12-14] MEDS: Levothyroxine 25 MCG TAB PO SCH (05:39)
[2016-12-14 07:17] LABS: BASO # 0.1 K/uL (0.0-0.2); BASO % 1.2 % (0.0-2.0); EOS # 0.4 K/uL (0.0-0.7); EOS % 5.7 % (0.0-4.0); HEMATOCRIT 36.6 % (34.0-47.0); LYMPH # 2.4 K/uL (1.0-4.3); LYMPH % 33.4 % (20.0-40.0); MEAN CELL VOLUME 85.3 fL (81.0-99.0); MEAN CORPUSCULAR HEMOGLOBIN 29.4 pg (27.0-31.0); MEAN CORPUSCULAR HGB CONC 34.5 g/dL (33.0-37.0); MEAN PLATELET VOLUME 7.6 fL (7.2-11.7); MONO # 0.8 K/uL (0.0-0.8); MONO % 11.1 % (0.0-10.0); RED CELL DISTRIBUTION WIDTH 13.3 % (11.5-14.5); WHITE BLOOD COUNT 7.2 K/uL (4.8-10.8)
[2016-12-14 07:35] LABS: CHLORIDE 101 mmol/L (98-107)
[2016-12-14 07:36] LABS: POTASSIUM 3.7 mmol/L (3.6-5.2); SODIUM 143 mmol/L (132-148)
--- NOTE | 2016-12-14 07:37 | CP.PCM.PN ---
<Seema Moreno - Last Filed: 12/14/16 09:37> Subjective - Date & Time of Evaluation Date of Evaluation: 12/14/16 Time of Evaluation: 07:30 - Subjective Subjective: Cardiology Progress Note for Dr. Truong Patient seen and examined at bedside. There were no acute overnight events as per nursing. She denies feeling dizzy. She denies CP, SOB, n/v/d, numbness/ tingling. Objective - Vital Signs/Intake and Output Vital Signs (last 24 hours): Temp Pulse Resp BP Pulse Ox 98.1 F 60 20 135/80 99 12/13/16 23:25 12/14/16 00:00 12/13/16 23:25 12/13/16 15:38 12/13/16 23:25 Intake and Output: 12/14/16 12/14/16 06:59 18:59 Intake Total 150 Balance 150 - Medications Medications: Current Medications Fludrocortisone Acetate (Florinef) 0.1 mg PO DAILY [facility] Last Admin: 12/13/16 17:34 Dose: 0.1 mg Levothyroxine Sodium (Synthroid) 25 mcg PO DAILY@0630 [facility] Last Admin: 12/14/16 05:39 Dose: 25 mcg Nitroglycerin (Nitro-Dur 0.1 Mg/Hr Patch) 1 patch TD HS [facility] Last Admin: 12/13/16 21:53 Dose: 1 patch Topiramate (Topamax) 25 mg PO HS [facility] Last Admin: 12/13/16 21:53 Dose: 25 mg Zolpidem Tartrate (Ambien) 5 mg PO HS PRN PRN Reason: Insomnia Last Admin: 12/14/16 00:07 Dose: 5 mg - Labs Labs: 12/14/16 06:59 12/13/16 06:04 PT 12.0 SECONDS (9.7-12.2) 12/10/16 11:31 INR 1.1 12/10/16 11:31 APTT 33 SECONDS (21-34) 12/10/16 11:31 - Constitutional Appears: No Acute Distress - Head Exam Head Exam: ATRAUMATIC, NORMAL INSPECTION, NORMOCEPHALIC - Eye Exam Eye Exam: Normal appearance Pupil Exam: NORMAL ACCOMODATION - ENT Exam ENT Exam: Mucous Membranes Moist - Neck Exam Neck Exam: Full ROM, Normal Inspection - Respiratory Exam Respiratory Exam: Clear to Ausculation Bilateral, NORMAL BREATHING PATTERN. absent: Decreased Breath Sounds, Rales, Stridor - Cardiovascular Exam Cardiovascular Exam: REGULAR RHYTHM, +S1, +S2. absent: Gallop, Rubs, Murmur - GI/Abdominal Exam GI & Abdominal Exam: Soft, Normal Bowel Sounds. absent: Rigid, Tenderness, Mass , Rebound - Extremities Exam Extremities Exam: Full ROM, Normal Inspection. absent: Pedal Edema - Neurological Exam Neurological Exam: Alert, Awake, CN II-XII Intact, Normal Gait, Oriented x3 - Psychiatric Exam Psychiatric exam: Normal Affect, Normal Mood - Skin Skin Exam: Dry, Normal Color, Warm Assessment and Plan - Assessment and Plan (Free Text) Assessment: This is a 61Y F with PMH vertigo, Meniere's disease, HTN, orthostatic hypotension, HTN, hypothyroidism and breast cancer (in remission) admitted for 1) Dizziness 2) HTN 3) Hypothyroidism 4) Orthostatic hypotension Plan: - Stress test, tilt table and echo all within normal limits - Continue to hold BP meds for orthostatic hypotension - BP meds on hold for orthostatic hypotension - Continue Synthroid - Pt on Florinef and Nitro patch DVT ppx: SCDs Case seen, reviewed and discussed with Dr. Alexi Moreno PGY1 <Brianne Truong - Last Filed: 12/15/16 08:02> Objective - Vital Signs/Intake and Output Vital Signs (last 24 hours): Temp Pulse Resp BP Pulse Ox 97.6 F 50 L 20 105/72 98 12/15/16 07:47 12/15/16 07:47 12/15/16 07:47 12/15/16 07:47 12/15/16 07:47 Intake and Output: 12/15/16 12/15/16 06:59 18:59 Intake Total 580 Balance 580 - Medications Medications: Current Medications Fludrocortisone Acetate (Florinef) 0.1 mg PO DAILY [facility] Last Admin: 12/14/16 10:38 Dose: 0.1 mg Levothyroxine Sodium (Synthroid) 25 mcg PO DAILY@0630 [facility] Last Admin: 12/15/16 05:32 Dose: 25 mcg Nitroglycerin (Nitro-Dur 0.1 Mg/Hr Patch) 1 patch TD HS [facility] Last Admin: 12/14/16 22:26 Dose: 1 patch Topiramate (Topamax) 25 mg PO HS [facility] Last Admin: 12/14/16 21:44 Dose: 25 mg Zolpidem Tartrate (Ambien) 5 mg PO HS PRN PRN Reason: Insomnia Last Admin: 12/14/16 00:07 Dose: 5 mg - Labs Labs: 12/14/16 06:59 12/14/16 06:59 PT 12.0 SECONDS (9.7-12.2) 12/10/16 11:31 INR 1.1 12/10/16 11:31 APTT 33 SECONDS (21-34) 12/10/16 11:31 Attending/Attestation - Attestation I have personally seen and examined this patient.: Yes I have fully participated in the care of the patient.: Yes I have reviewed all pertinent clinical information, including history, physical exam and plan: Yes Notes (Text): 12/15/16 08:02 still dizzy mitodrine option
[2016-12-14 07:38] LABS: ALB/GLOB RATIO 1.3 (1.0-2.1); ALKALINE PHOSPHATASE 67 U/L (38-126); ALT/SGPT 19 U/L (9-52); AST/SGOT 19 U/L (14-36); BILIRUBIN,TOTAL 0.5 mg/dL (0.2-1.3); BLOOD UREA NITROGEN 16 mg/dL (7-17); CALCIUM 8.9 mg/dl (8.6-10.4); CARBON DIOXIDE 26 mmol/L (22-30); GFR AFRICAN-AMERICAN > 60; GLUCOSE,RANDOM 76 mg/dL (65-105); TOTAL PROTEIN 6.6 g/dL (6.3-8.3)
--- NOTE | 2016-12-14 08:00 | OP ---
PROCEDURE DATE: 12/13/2016 The patient is a 61-year-old female with a date of of 1955. The patient presents to the cath lab radiology technician after IV hydration for tilt table test. The patient tilted for 35 minutes at 75 degrees with no changes in her blood pressure. The patient tolerated the tilt table well and this was a negative tilt table test. Brianne Truong MD cc: [id number] TT: 12/13/2016 19:24:20 dn
--- NOTE | 2016-12-14 21:34 | CP.PCM.PN ---
Subjective - Date & Time of Evaluation Date of Evaluation: 12/14/16 Time of Evaluation: 21:33 - Subjective Subjective: feeling ok no chest pain dizziness noted on florinef and nitro continue the current treatment Objective - Vital Signs/Intake and Output Vital Signs (last 24 hours): Temp Pulse Resp BP Pulse Ox 98.4 F 61 20 135/77 97 12/14/16 16:01 12/14/16 17:00 12/14/16 16:01 12/14/16 16:01 12/14/16 16:01 - Medications Medications: Current Medications Fludrocortisone Acetate (Florinef) 0.1 mg PO DAILY [facility] Last Admin: 12/14/16 10:38 Dose: 0.1 mg Levothyroxine Sodium (Synthroid) 25 mcg PO DAILY@0630 [facility] Last Admin: 12/14/16 05:39 Dose: 25 mcg Nitroglycerin (Nitro-Dur 0.1 Mg/Hr Patch) 1 patch TD HS [facility] Last Admin: 12/13/16 21:53 Dose: 1 patch Topiramate (Topamax) 25 mg PO HS [facility] Last Admin: 12/13/16 21:53 Dose: 25 mg Zolpidem Tartrate (Ambien) 5 mg PO HS PRN PRN Reason: Insomnia Last Admin: 12/14/16 00:07 Dose: 5 mg - Labs Labs: 12/14/16 06:59 12/14/16 06:59 PT 12.0 SECONDS (9.7-12.2) 12/10/16 11:31 INR 1.1 12/10/16 11:31 APTT 33 SECONDS (21-34) 12/10/16 11:31
--- NOTE | 2016-12-14 21:56 | CP.PCM.PN ---
Subjective - Date & Time of Evaluation Date of Evaluation: 12/14/16 Time of Evaluation: 12:00 - Subjective Subjective: Patient mgt as per Dr. Truong for orthostatic hypotension No further recommendations from my side Objective - Vital Signs/Intake and Output Vital Signs (last 24 hours): Temp Pulse Resp BP Pulse Ox 98.4 F 61 20 135/77 97 12/14/16 16:01 12/14/16 17:00 12/14/16 16:01 12/14/16 16:01 12/14/16 16:01 - Medications Medications: Current Medications Fludrocortisone Acetate (Florinef) 0.1 mg PO DAILY [facility] Last Admin: 12/14/16 10:38 Dose: 0.1 mg Levothyroxine Sodium (Synthroid) 25 mcg PO DAILY@0630 [facility] Last Admin: 12/14/16 05:39 Dose: 25 mcg Nitroglycerin (Nitro-Dur 0.1 Mg/Hr Patch) 1 patch TD HS [facility] Last Admin: 12/13/16 21:53 Dose: 1 patch Topiramate (Topamax) 25 mg PO HS [facility] Last Admin: 12/14/16 21:44 Dose: 25 mg Zolpidem Tartrate (Ambien) 5 mg PO HS PRN PRN Reason: Insomnia Last Admin: 12/14/16 00:07 Dose: 5 mg - Labs Labs: 12/14/16 06:59 12/14/16 06:59 PT 12.0 SECONDS (9.7-12.2) 12/10/16 11:31 INR 1.1 12/10/16 11:31 APTT 33 SECONDS (21-34) 12/10/16 11:31
[2016-12-14] MEDS: Nitroglycerin 0.1 mg/hr Top Patch TD SCH (22:26)
[2016-12-15] MEDS: Levothyroxine 25 MCG TAB PO SCH (05:32)
--- NOTE | 2016-12-15 06:42 | CARD ---
APPROVED REPORT EKG Measurement Heart [id number] AR [id number] <Conclusion> Sinus bradycardia Otherwise normal ECG
--- NOTE | 2016-12-15 09:14 | OP ---
PROCEDURE DATE: 12/11/2016 TILT TABLE TEST The patient presents today for a tilt table head up test at 75 degrees. After IV fluids, the patient was tilted up for 35 minutes with no symptoms. Negative tilt table test. Continue treatment. Brianne Truong MD cc: [id number] TT: 12/15/2016 09:14:22 jn [place]
--- NOTE | 2016-12-15 09:15 | CP.PCM.PN ---
Subjective - Date & Time of Evaluation Date of Evaluation: 12/15/16 Time of Evaluation: 08:45 - Subjective Subjective: Still feels lightheaded Objective - Vital Signs/Intake and Output Vital Signs (last 24 hours): Temp Pulse Resp BP Pulse Ox 97.6 F 50 L 20 105/72 98 12/15/16 07:47 12/15/16 08:01 12/15/16 07:47 12/15/16 07:47 12/15/16 07:47 Intake and Output: 12/15/16 12/15/16 06:59 18:59 Intake Total 580 Balance 580 - Medications Medications: Current Medications Fludrocortisone Acetate (Florinef) 0.1 mg PO DAILY [facility] Last Admin: 12/14/16 10:38 Dose: 0.1 mg Levothyroxine Sodium (Synthroid) 25 mcg PO DAILY@0630 [facility] Last Admin: 12/15/16 05:32 Dose: 25 mcg Nitroglycerin (Nitro-Dur 0.1 Mg/Hr Patch) 1 patch TD [facility] Last Admin: 12/14/16 22:26 Dose: 1 patch Topiramate (Topamax) 25 mg PO HS [facility] Last Admin: 12/14/16 21:44 Dose: 25 mg Zolpidem Tartrate (Ambien) 5 mg PO HS PRN PRN Reason: Insomnia Last Admin: 12/14/16 00:07 Dose: 5 mg - Labs Labs: 12/14/16 06:59 12/14/16 06:59 PT 12.0 SECONDS (9.7-12.2) 12/10/16 11:31 INR 1.1 12/10/16 11:31 APTT 33 SECONDS (21-34) 12/10/16 11:31 - Respiratory Exam Additional comments: Lungs clear - Cardiovascular Exam Cardiovascular Exam: REGULAR RHYTHM - Extremities Exam Additional comments: No edema Assessment and Plan - Assessment and Plan (Free Text) Assessment: orthostatic hypotension. Started on Florinef Plan: Urine CATS results are still pending Continue to monitor BP
[2016-12-15 12:59] LABS: CALCULATED TOTAL (E/NE) 14 mcg/24 h (26-121); NOREPINEPHRINE 24 HR UR 14 mcg/24 h (15-100)
--- NOTE | 2016-12-15 13:22 | CP.PCM.PN ---
Subjective - Date & Time of Evaluation Date of Evaluation: 12/15/16 Time of Evaluation: 13:22 - Subjective Subjective: patient still feeling lightheadedness. No headache at this time. But persistent changes noted. Eating okay, otherwise nonspecific Started on Florinef day 2 Continue the current treatment at this time, we'll monitor again that changes and he may need to increase the Florinef Objective - Vital Signs/Intake and Output Vital Signs (last 24 hours): Temp Pulse Resp BP Pulse Ox 97.6 F 50 L 20 105/72 98 12/15/16 07:47 12/15/16 08:01 12/15/16 07:47 12/15/16 07:47 12/15/16 07:47 Intake and Output: 12/15/16 12/15/16 06:59 18:59 Intake Total 580 Balance 580 - Medications Medications: Current Medications Fludrocortisone Acetate (Florinef) 0.1 mg PO DAILY [facility] Last Admin: 12/15/16 09:46 Dose: 0.1 mg Levothyroxine Sodium (Synthroid) 25 mcg PO DAILY@0630 [facility] Last Admin: 12/15/16 05:32 Dose: 25 mcg Nitroglycerin (Nitro-Dur 0.1 Mg/Hr Patch) 1 patch TD HS [facility] Last Admin: 12/14/16 22:26 Dose: 1 patch Topiramate (Topamax) 25 mg PO HS [facility] Last Admin: 12/14/16 21:44 Dose: 25 mg Zolpidem Tartrate (Ambien) 5 mg PO HS PRN PRN Reason: Insomnia Last Admin: 12/14/16 00:07 Dose: 5 mg - Labs Labs: 12/14/16 06:59 12/14/16 06:59 PT 12.0 SECONDS (9.7-12.2) 12/10/16 11:31 INR 1.1 12/10/16 11:31 APTT 33 SECONDS (21-34) 12/10/16 11:31
[2016-12-15] MEDS: Nitroglycerin 0.1 mg/hr Top Patch TD SCH (21:13)
--- NOTE | 2016-12-15 22:24 | CP.PCM.PN ---
Subjective - Date & Time of Evaluation Date of Evaluation: 12/15/16 Time of Evaluation: 19:30 - Subjective Subjective: Patient seen and evaluated Slight improvement in dizziness with medications But symptoms not completely gone Objective - Vital Signs/Intake and Output Vital Signs (last 24 hours): Temp Pulse Resp BP Pulse Ox 97.9 F 56 L 20 105/72 96 12/15/16 16:26 12/15/16 16:26 12/15/16 16:26 12/15/16 07:47 12/15/16 16:26 - Medications Medications: Current Medications Fludrocortisone Acetate (Florinef) 0.1 mg PO DAILY [facility] Last Admin: 12/15/16 09:46 Dose: 0.1 mg Levothyroxine Sodium (Synthroid) 25 mcg PO DAILY@0630 [facility] Last Admin: 12/15/16 05:32 Dose: 25 mcg Nitroglycerin (Nitro-Dur 0.1 Mg/Hr Patch) 1 patch TD HS [facility] Last Admin: 12/15/16 21:13 Dose: 1 patch Topiramate (Topamax) 25 mg PO HS [facility] Last Admin: 12/15/16 21:12 Dose: 25 mg Zolpidem Tartrate (Ambien) 5 mg PO HS PRN PRN Reason: Insomnia Last Admin: 12/14/16 00:07 Dose: 5 mg - Labs Labs: 12/14/16 06:59 12/14/16 06:59 PT 12.0 SECONDS (9.7-12.2) 12/10/16 11:31 INR 1.1 12/10/16 11:31 APTT 33 SECONDS (21-34) 12/10/16 11:31
[2016-12-16] MEDS: Levothyroxine 25 MCG TAB PO SCH (06:18)
[2016-12-16 12:07] LABS: DOPAMINE 33 pg/mL (()); EPINEPHRINE 43 pg/mL (()); NOREPINEPHRINE 554 pg/mL (())
[2016-12-16] MEDS: Nitroglycerin 0.1 mg/hr Top Patch TD SCH (21:27)
[2016-12-17] MEDS: Levothyroxine 25 MCG TAB PO SCH (06:18)
--- NOTE | 2016-12-17 07:50 | CP.PCM.PN ---
<Seema Moreno - Last Filed: 12/17/16 07:47> Subjective - Date & Time of Evaluation Date of Evaluation: 12/17/16 Time of Evaluation: 07:25 - Subjective Subjective: Cardiology Progress Note for Dr. Truong Patient seen and examined at bedside. As per nursing, there were no acute overnight events. Patient reports having trouble sleeping last night due to the elevated room temperature. Otherwise, she reports feeling well. She did 2 laps around the hospital floor yesterday without feeling dizzy. She states her symptoms have improved since admission. She denies CP, SOB, n/v/d, numbness/ tingling, or vision changes. Objective - Vital Signs/Intake and Output Vital Signs (last 24 hours): Temp Pulse Resp BP Pulse Ox 97.4 F L 60 20 149/80 96 12/16/16 23:35 12/17/16 00:05 12/16/16 23:35 12/16/16 23:35 12/16/16 23:35 Intake and Output: 12/17/16 12/17/16 06:59 18:59 Intake Total 240 Balance 240 - Medications Medications: Current Medications Fludrocortisone Acetate (Florinef) 0.1 mg PO DAILY [facility] Last Admin: 12/16/16 10:40 Dose: 0.1 mg Levothyroxine Sodium (Synthroid) 25 mcg PO DAILY@0630 [facility] Last Admin: 12/17/16 06:18 Dose: 25 mcg Nitroglycerin (Nitro-Dur 0.1 Mg/Hr Patch) 1 patch TD HS [facility] Last Admin: 12/16/16 21:27 Dose: 1 patch Topiramate (Topamax) 25 mg PO HS [facility] Last Admin: 12/16/16 21:27 Dose: 25 mg Zolpidem Tartrate (Ambien) 5 mg PO HS PRN PRN Reason: Insomnia Last Admin: 12/14/16 00:07 Dose: 5 mg - Labs Labs: 12/14/16 06:59 12/14/16 06:59 PT 12.0 SECONDS (9.7-12.2) 12/10/16 11:31 INR 1.1 12/10/16 11:31 APTT 33 SECONDS (21-34) 12/10/16 11:31 - Constitutional Appears: No Acute Distress - Head Exam Head Exam: ATRAUMATIC, NORMAL INSPECTION, NORMOCEPHALIC - Eye Exam Eye Exam: Normal appearance, PERRL Pupil Exam: NORMAL ACCOMODATION - ENT Exam ENT Exam: Mucous Membranes Moist - Neck Exam Neck Exam: Normal Inspection - Respiratory Exam Respiratory Exam: Clear to Ausculation Bilateral, NORMAL BREATHING PATTERN. absent: Rales, Rhonchi, Wheezes - Cardiovascular Exam Cardiovascular Exam: REGULAR RHYTHM, +S1, +S2. absent: Gallop, Rubs, Murmur - GI/Abdominal Exam GI & Abdominal Exam: Soft, Normal Bowel Sounds. absent: Rigid, Tenderness, Mass , Rebound - Extremities Exam Extremities Exam: Normal Inspection. absent: Calf Tenderness, Pedal Edema - Neurological Exam Neurological Exam: Alert, Awake, CN II-XII Intact, Normal Gait, Oriented x3 - Psychiatric Exam Psychiatric exam: Normal Affect, Normal Mood - Skin Skin Exam: Dry, Normal Color, Warm Assessment and Plan - Assessment and Plan (Free Text) Assessment: This is a 61Y F with PMH vertigo, Meniere's disease, HTN, orthostatic hypotension, HTN, hypothyroidism and breast cancer (in remission) admitted for 1) Dizziness- improved 2) HTN 3) Hypothyroidism 4) Orthostatic hypotension Plan: - Continue Florienf and Nitro patch - Consider Midodrine if dizziness not improved - Continue to hold BP meds for orthostatic hypotension - Echo, stress test and tilt table all normal DVT ppx: SCDs Case seen, reviewed and discussed with Dr. Alexi Moreno PGY1 <Brianne Truong - Last Filed: 01/29/17 04:00> Objective - Vital Signs/Intake and Output Vital Signs (last 24 hours): Temp Pulse Resp BP Pulse Ox 98.1 F 59 L 20 152/81 H 98 12/25/16 09:02 12/25/16 08:00 12/25/16 09:02 12/25/16 09:02 12/25/16 09:02 - Labs Labs: 12/14/16 06:59 12/14/16 06:59 PT 12.0 SECONDS (9.7-12.2) 12/10/16 11:31 INR 1.1 12/10/16 11:31 APTT 33 SECONDS (21-34) 12/10/16 11:31 Assessment and Plan (1) Orthostatic hypotension dysautonomic syndrome Status: Acute Attending/Attestation - Attestation I have personally seen and examined this patient.: Yes I have fully participated in the care of the patient.: Yes I have reviewed all pertinent clinical information, including history, physical exam and plan: Yes Notes (Text): 01/29/17 03:59 symptoms improving she walked twice around unit
--- NOTE | 2016-12-17 11:57 | CP.PCM.PN ---
Subjective - Date & Time of Evaluation Date of Evaluation: 12/17/16 Time of Evaluation: 10:00 - Subjective Subjective: Still feels dizzy & lightheaded when ambulating Objective - Vital Signs/Intake and Output Vital Signs (last 24 hours): Temp Pulse Resp BP Pulse Ox 97.8 F 53 L 20 105/74 96 12/17/16 08:42 12/17/16 08:42 12/17/16 08:42 12/17/16 08:42 12/17/16 08:42 Intake and Output: 12/17/16 12/17/16 06:59 18:59 Intake Total 240 Balance 240 - Medications Medications: Current Medications Fludrocortisone Acetate (Florinef) 0.1 mg PO DAILY [facility] Last Admin: 12/17/16 10:27 Dose: 0.1 mg Levothyroxine Sodium (Synthroid) 25 mcg PO DAILY@0630 [facility] Last Admin: 12/17/16 06:18 Dose: 25 mcg Nitroglycerin (Nitro-Dur 0.1 Mg/Hr Patch) 1 patch TD HS [facility] Last Admin: 12/16/16 21:27 Dose: 1 patch Topiramate (Topamax) 25 mg PO HS [facility] Last Admin: 12/16/16 21:27 Dose: 25 mg Zolpidem Tartrate (Ambien) 5 mg PO HS PRN PRN Reason: Insomnia Last Admin: 12/14/16 00:07 Dose: 5 mg - Labs Labs: 12/14/16 06:59 12/14/16 06:59 PT 12.0 SECONDS (9.7-12.2) 12/10/16 11:31 INR 1.1 12/10/16 11:31 APTT 33 SECONDS (21-34) 12/10/16 11:31 - Respiratory Exam Additional comments: Lungs clear - Cardiovascular Exam Cardiovascular Exam: REGULAR RHYTHM - Extremities Exam Additional comments: No edema Assessment and Plan - Assessment and Plan (Free Text) Assessment: Orthostatic hypotensio catecolamine results are inconclusive Hx/o vertigo Plan: Treated with Florinef & nitrated Monitor
--- NOTE | 2016-12-17 15:30 | CARD ---
APPROVED REPORT EKG Measurement Heart [id number] <Conclusion> Suspect arm lead reversal, interpretation assumes no reversal Unusual P axis, possible ectopic atrial rhythm Right superior axis deviation ST & T wave abnormality, consider inferior ischemia Prolonged QT Abnormal ECG
[2016-12-17] MEDS: Nitroglycerin 0.1 mg/hr Top Patch TD SCH (21:23)
[2016-12-18] MEDS: Levothyroxine 25 MCG TAB PO SCH (06:01)
[2016-12-18 11:06] LABS: METANEPHRINES <25 pg/mL (<=57); TOTAL METANEPHRINES <50 pg/mL (<=205)
--- NOTE | 2016-12-18 12:07 | CP.PCM.PN ---
Addendum entered and electronically signed by Seema Moreno DO 12/18/16 16: 02: Patient re-examined in afternoon. Noted to have elevated BP in 180s lying down and 160 standing. Midodrine decreased to once per day and nitro patch d/c for Vasodilation which can worsen orthostatic hypotension. Original Note: <Seema Moreno - Last Filed: 12/18/16 12:56> Subjective - Date & Time of Evaluation Date of Evaluation: 12/18/16 Time of Evaluation: 11:00 - Subjective Subjective: Cardiology Progress Note for Dr. Truong Patient seen and examined at bedside. There were no acute overnight events as per nursing. She says she that her dizziness has improved. She only feels dizzy after making a few labs around the hospital floor. She denies having any pain, n /v/d, numbness/tingling, vision changes, CP or SOB. Objective - Vital Signs/Intake and Output Vital Signs (last 24 hours): Temp Pulse Resp BP Pulse Ox 97.8 F 69 20 159/88 H 96 12/18/16 07:20 12/18/16 07:30 12/18/16 07:20 12/18/16 07:20 12/18/16 07:20 Intake and Output: 12/18/16 12/18/16 06:59 18:59 Intake Total 500 Balance 500 - Medications Medications: Current Medications Levothyroxine Sodium (Synthroid) 25 mcg PO DAILY@0630 [facility] Last Admin: 12/18/16 06:01 Dose: 25 mcg Midodrine (Proamatine) 2.5 mg PO TID [facility] Last Admin: 12/18/16 10:22 Dose: 2.5 mg Nitroglycerin (Nitro-Dur 0.1 Mg/Hr Patch) 1 patch TD HS [facility] Last Admin: 12/17/16 21:23 Dose: 1 patch Zolpidem Tartrate (Ambien) 5 mg PO HS PRN PRN Reason: Insomnia Last Admin: 12/14/16 00:07 Dose: 5 mg - Labs Labs: 12/14/16 06:59 12/14/16 06:59 PT 12.0 SECONDS (9.7-12.2) 12/10/16 11:31 INR 1.1 12/10/16 11:31 APTT 33 SECONDS (21-34) 12/10/16 11:31 - Constitutional Appears: No Acute Distress - Head Exam Head Exam: NORMAL INSPECTION, NORMOCEPHALIC - Eye Exam Eye Exam: Normal appearance, PERRL Pupil Exam: NORMAL ACCOMODATION - ENT Exam ENT Exam: Mucous Membranes Moist - Neck Exam Neck Exam: Full ROM, Normal Inspection - Cardiovascular Exam Cardiovascular Exam: REGULAR RHYTHM, +S1, +S2. absent: Gallop, Rubs, Murmur - GI/Abdominal Exam GI & Abdominal Exam: Soft, Normal Bowel Sounds. absent: Tenderness - Extremities Exam Extremities Exam: Normal Inspection. absent: Calf Tenderness, Pedal Edema - Neurological Exam Neurological Exam: Alert, Awake, CN II-XII Intact, Normal Gait, Oriented x3 - Psychiatric Exam Psychiatric exam: Normal Affect, Normal Mood - Skin Skin Exam: Dry, Intact, Normal Color, Warm Assessment and Plan - Assessment and Plan (Free Text) Assessment: This is a 61Y F with PMH vertigo, Meniere's disease, HTN, orthostatic hypotension, HTN, hypothyroidism and breast cancer (in remission) admitted for 1) Dizziness- improved 2) HTN 3) Hypothyroidism 4) Orthostatic hypotension Plan: - Roseline d/c now on Midodrine and Nitro patch - Echo, Tilt table and stress test did not show any abnormalities - Continue to hold BP meds for orthostatic hypotension DVT ppx: SCDs Case seen, reviewed and discussed with Dr. Alexi Moreno PGY1 <Brianne Truong - Last Filed: 01/29/17 03:58> Objective - Vital Signs/Intake and Output Vital Signs (last 24 hours): Temp Pulse Resp BP Pulse Ox 98.1 F 59 L 20 152/81 H 98 12/25/16 09:02 12/25/16 08:00 12/25/16 09:02 12/25/16 09:02 12/25/16 09:02 - Labs Labs: 12/14/16 06:59 12/14/16 06:59 PT 12.0 SECONDS (9.7-12.2) 12/10/16 11:31 INR 1.1 12/10/16 11:31 APTT 33 SECONDS (21-34) 12/10/16 11:31 Assessment and Plan (1) Orthostatic hypotension dysautonomic syndrome Status: Acute Attending/Attestation - Attestation I have personally seen and examined this patient.: Yes I have fully participated in the care of the patient.: Yes I have reviewed all pertinent clinical information, including history, physical exam and plan: Yes Notes (Text): 01/29/17 03:58 taper meds pt with hypertension today 180s
--- NOTE | 2016-12-18 19:26 | CP.PCM.PN ---
Subjective - Date & Time of Evaluation Date of Evaluation: 12/16/16 Time of Evaluation: 19:24 - Subjective Subjective: pt still having headache dizziness nausea no vomiting still orthostasis noted on meds will adjust Objective - Vital Signs/Intake and Output Vital Signs (last 24 hours): Temp Pulse Resp BP Pulse Ox 98.1 F 71 20 184/88 H 96 12/18/16 15:55 12/18/16 15:55 12/18/16 15:55 12/18/16 15:55 12/18/16 15:55 - Medications Medications: Current Medications Acetaminophen (Tylenol 325mg Tab) 650 mg PO Q6 PRN PRN Reason: Headache Last Admin: 12/18/16 17:21 Dose: 650 mg Levothyroxine Sodium (Synthroid) 25 mcg PO DAILY@0630 [facility] Last Admin: 12/18/16 06:01 Dose: 25 mcg Midodrine (Proamatine) 2.5 mg PO DAILY [facility] Zolpidem Tartrate (Ambien) 5 mg PO HS PRN PRN Reason: Insomnia Last Admin: 12/14/16 00:07 Dose: 5 mg - Labs Labs: 12/14/16 06:59 12/14/16 06:59 PT 12.0 SECONDS (9.7-12.2) 12/10/16 11:31 INR 1.1 12/10/16 11:31 APTT 33 SECONDS (21-34) 12/10/16 11:31
--- NOTE | 2016-12-18 19:34 | CP.PCM.PN ---
Subjective - Date & Time of Evaluation Date of Evaluation: 12/17/16 Time of Evaluation: 19:26 - Subjective Subjective: spoke to the pt about the orthostatic pressure changes and related with Parkinson may be a candidate for newer medications spoke neuro wll f/u Objective - Vital Signs/Intake and Output Vital Signs (last 24 hours): Temp Pulse Resp BP Pulse Ox 98.1 F 71 20 184/88 H 96 12/18/16 15:55 12/18/16 15:55 12/18/16 15:55 12/18/16 15:55 12/18/16 15:55 - Medications Medications: Current Medications Acetaminophen (Tylenol 325mg Tab) 650 mg PO Q6 PRN PRN Reason: Headache Last Admin: 12/18/16 17:21 Dose: 650 mg Levothyroxine Sodium (Synthroid) 25 mcg PO DAILY@0630 [facility] Last Admin: 12/18/16 06:01 Dose: 25 mcg Midodrine (Proamatine) 2.5 mg PO DAILY [facility] Zolpidem Tartrate (Ambien) 5 mg PO HS PRN PRN Reason: Insomnia Last Admin: 12/14/16 00:07 Dose: 5 mg - Labs Labs: 12/14/16 06:59 12/14/16 06:59 PT 12.0 SECONDS (9.7-12.2) 12/10/16 11:31 INR 1.1 12/10/16 11:31 APTT 33 SECONDS (21-34) 12/10/16 11:31
--- NOTE | 2016-12-18 19:35 | CP.PCM.PN ---
Subjective - Date & Time of Evaluation Date of Evaluation: 12/17/16 Time of Evaluation: 19:34 - Subjective Subjective: continue the current treatmetn Objective - Vital Signs/Intake and Output Vital Signs (last 24 hours): Temp Pulse Resp BP Pulse Ox 98.1 F 71 20 184/88 H 96 12/18/16 15:55 12/18/16 15:55 12/18/16 15:55 12/18/16 15:55 12/18/16 15:55 - Medications Medications: Current Medications Acetaminophen (Tylenol 325mg Tab) 650 mg PO Q6 PRN PRN Reason: Headache Last Admin: 12/18/16 17:21 Dose: 650 mg Levothyroxine Sodium (Synthroid) 25 mcg PO DAILY@0630 [facility] Last Admin: 12/18/16 06:01 Dose: 25 mcg Midodrine (Proamatine) 2.5 mg PO DAILY [facility] Zolpidem Tartrate (Ambien) 5 mg PO HS PRN PRN Reason: Insomnia Last Admin: 12/14/16 00:07 Dose: 5 mg - Labs Labs: 12/14/16 06:59 12/14/16 06:59 PT 12.0 SECONDS (9.7-12.2) 12/10/16 11:31 INR 1.1 12/10/16 11:31 APTT 33 SECONDS (21-34) 12/10/16 11:31
[2016-12-19] MEDS: Levothyroxine 25 MCG TAB PO SCH (06:20)
--- NOTE | 2016-12-19 07:29 | CON ---
DATE: 12/18/2016 DATE OF ADMISSION: 12/10/16 DATE OF EVALUATION: 12/18/16 ATTENDING PHYSICIAN: Roderick Pool MD Room 667, bed A. REASON FOR CONSULTATION: Light-headedness and dizziness. CHIEF COMPLAINT: The patient was brought in to [facility] with a history of persistent dizzines s and low blood pressure. From neurological point of view I was called in to evaluate her for furthe r management. HISTORY OF PRESENT ILLNESS: The patient is a 61-year-old right-handed female who was seen by me in previous admission for recurrent vertigo. During her had admission, the patient being worked up extensively, including MRI and MR angiogram. No significant changes that could explain he r symptoms. 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 Within a week her vertiginous symptoms was completely resolved, and dizziness was persistent a t the time of discharge. At present, the patient has a recurrent episode of light-headedness when she lying posture to sit up, and sit up to stand up, for a few minutes after walking, as well as with a few minutes after sitting . She started to have recurrent symptom of light-headedness which was disabling her big time. This episode not associating with dizziness. No visual and bulbar dysfunction, no focal weakness. Howeve r, this light-headedness which has been persistent for the last few months. During her hospitalization, the patient did have electrocardiogram which was showing sinus bradycardi a. The patient also had a myocardial perfusion scan which was reported as stress and resting images showed no abnormal perfusion. The patient also did undergo wharf laborer for IV hydration, including a ti lt table test. The patient was tilted for about 35 minutes at 75 agree with no changes in her blood pressure. PERSONAL HISTORY: Denies smoking or alcohol use. ALLERGIES: No known allergies. MEDICATIONS: Florinef, Topamax, levothyroxine, nitroglycerin, and zolpidem p.r.n. VITAL SIGNS: Blood pressure lying down 164/83, sitting up 168/86, standing pulse rate is 152/86. Th e patient's pulse rate is also evaluated by me. She has a lying down pulse rate was 68, sitting 84, on standing 112. Temperature 98.1. NECK: Supple. No carotid bruit. HEART: Sounds are regular. CHEST: Fair air entry. No edema in legs. NEUROLOGIC EXAMINATION: MENTAL STATUS EXAMINATION: She is awake, alert, oriented to person, place, and time. Speech is lo r. Naming, repetition, fluency, comprehension, all within normal. CRANIAL NERVE EXAMINATION: Visual field intact. Pupil reactive to light, extraocular movements norm al. No nystagmus. No facial sensory deficit, no facial asymmetry. Hearing is normal. Tongue is mi dline. Good gag. MOTOR EXAMINATION: Outstretched hand with eyes closed, no drift noted. Power is symmetric on either side. DEEP TENDON REFLEXES: Shows biceps, brachioradialis, triceps 2+. Both knees are 2+. Both ankles ar e trace. Plantars are downgoing. SENSORY EXAMINATION: Showed a significantly decreased vibration sense in both lower extremities. Te mperature: She did not appreciate herself any changes for proximally as well as distally. COORDINATION: Vpsqag-xxon-xsgwth test is intact. GAIT: Normal. CONCLUSION: Upon reviewing her history and neurological examination, the patient has been presentin with recurrent episode of reproducible light-headedness unrelated to prolonged sitting, as well as walking, with the possibility of dysautonomia. 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 BLOOD WORKUP: WBC 7.2, hemoglobin 12.6, hematocrit 36.6, platelets 284. Sodium 143, potassium 3.7, chloride 101, bicarbonate 26, BUN 16, creatinine 0.8. GFR more than 60. Rest of the electrolytes we re normal. Liver functions are normal. TSH is 0.85, aldosterone 3, renin 0.50, dopamine 33, plasma epinephrine 43, norepinephrine 554. Her urine analysis shows 2+ , urine norepinephrine level was 14, which should be a 15 and above. Dopamine in the urine is at 227, which is normal. RECOMMENDATIONS: At this point, I would like to discontinue Topamax, and the Florinef also can be di scontinued. I would like to get her on proamatine which is 2.5 mg 3 times a day to improve her blood pressure, and keep her head in elevation, with MERNA stockings that can be worn during lying down posi tion. The patient also encouraged to eat regular salt diet, and encouraged her to drink a lot of fluids. Dariel Farah MD cc: [id number] TT: 12/18/2016 09:47:42 Confirmation # [id number] Dictation # [id number] jn 12/19/2016 06:28:19
--- NOTE | 2016-12-19 07:30 | CP.PCM.PN ---
<JoshSeema - Last Filed: 12/19/16 09:03> Subjective - Date & Time of Evaluation Date of Evaluation: 12/19/16 Time of Evaluation: 07:30 - Subjective Subjective: Cardiology Progress Note for Dr. Truong Patient seen and examined at bedside. There were no acute overnight events. Patient reports feeling dizzy when getting up from the toilet. She urinated and denies straining. She denies pain, CP, n/v/d, numbness/tingling, vision changes , hematuria or dysuria. Objective - Vital Signs/Intake and Output Vital Signs (last 24 hours): Temp Pulse Resp BP Pulse Ox 98.2 F 54 L 20 184/88 H 98 12/18/16 23:20 12/19/16 00:05 12/18/16 23:20 12/18/16 15:55 12/18/16 23:20 - Medications Medications: Current Medications Acetaminophen (Tylenol 325mg Tab) 650 mg PO Q6 PRN PRN Reason: Headache Last Admin: 12/18/16 17:21 Dose: 650 mg Levothyroxine Sodium (Synthroid) 25 mcg PO DAILY@0630 [facility] Last Admin: 12/19/16 06:20 Dose: 25 mcg Midodrine (Proamatine) 2.5 mg PO DAILY [facility] Zolpidem Tartrate (Ambien) 5 mg PO HS PRN PRN Reason: Insomnia Last Admin: 12/14/16 00:07 Dose: 5 mg - Labs Labs: 12/14/16 06:59 12/14/16 06:59 PT 12.0 SECONDS (9.7-12.2) 12/10/16 11:31 INR 1.1 12/10/16 11:31 APTT 33 SECONDS (21-34) 12/10/16 11:31 - Constitutional Appears: No Acute Distress - Head Exam Head Exam: ATRAUMATIC, NORMAL INSPECTION, NORMOCEPHALIC - Eye Exam Eye Exam: Normal appearance, PERRL Pupil Exam: NORMAL ACCOMODATION - ENT Exam ENT Exam: Mucous Membranes Moist - Respiratory Exam Respiratory Exam: Clear to Ausculation Bilateral, NORMAL BREATHING PATTERN. absent: Rales, Rhonchi, Wheezes - Cardiovascular Exam Cardiovascular Exam: REGULAR RHYTHM, +S1, +S2. absent: Gallop, Rubs, Murmur - GI/Abdominal Exam GI & Abdominal Exam: Soft, Normal Bowel Sounds. absent: Rigid, Tenderness, Mass , Rebound - Extremities Exam Extremities Exam: Normal Inspection. absent: Calf Tenderness, Pedal Edema - Neurological Exam Neurological Exam: Alert, Awake, CN II-XII Intact, Oriented x3 - Psychiatric Exam Psychiatric exam: Normal Affect, Normal Mood - Skin Skin Exam: Dry, Normal Color, Warm Assessment and Plan - Assessment and Plan (Free Text) Assessment: This is a 61Y F with PMH vertigo, Meniere's disease, HTN, orthostatic hypotension, HTN, hypothyroidism and breast cancer (in remission) admitted for 1) Dizziness 2) Orthostatic Hypotension 3) HTN 4) Hypothyroidism Plan: - Continue Midodrine once daily - Continue Tylenol for headache - Continue to monitor for orthostasis - BP meds continue to be on hold for Orthostasis Case seen, reviewed and discussed with Dr. Alexi Moreno PGY1 <Brianne Truong - Last Filed: 01/29/17 03:57> Objective - Vital Signs/Intake and Output Vital Signs (last 24 hours): Temp Pulse Resp BP Pulse Ox 98.1 F 59 L 20 152/81 H 98 12/25/16 09:02 12/25/16 08:00 12/25/16 09:02 12/25/16 09:02 12/25/16 09:02 - Labs Labs: 12/14/16 06:59 12/14/16 06:59 PT 12.0 SECONDS (9.7-12.2) 12/10/16 11:31 INR 1.1 12/10/16 11:31 APTT 33 SECONDS (21-34) 12/10/16 11:31 Assessment and Plan (1) Orthostatic hypotension dysautonomic syndrome Status: Acute Attending/Attestation - Attestation I have personally seen and examined this patient.: Yes I have fully participated in the care of the patient.: Yes I have reviewed all pertinent clinical information, including history, physical exam and plan: Yes Notes (Text): 01/29/17 03:57 taper meds still dizzy getting up from bed
--- NOTE | 2016-12-19 08:55 | PN ---
DATE: 12/19/2016 NEUROLOGICAL PROBLEM: Recurrent sustained dysautonomia on prolonged changing in position, associating with peripheral neuropathy. The events being noted on last night. At present, the patient is awake, alert, oriented to person, place, and time. She slept good. She was afraid to get up and walk because of the blood pressure. The rest of the examination is normal. Her blood pressure was probably related to ProAmatine or abrupt discontinuing Florinef. However, the blood pressure decreased on changing the dose of the medication. I totally agree with the ProAmatine once a day, then dose can be increased if it is needed. The patient is encouraged to drink a lot of water and get out of the bed during the daytime. The patient will be followed closely with you. Dariel Farah MD cc: [id number] TT: 12/19/2016 08:54:40 Confirmation # [id number] Dictation # [id number] MTDD
[2016-12-20] MEDS: Levothyroxine 25 MCG TAB PO SCH (06:26)
--- NOTE | 2016-12-20 08:00 | CP.PCM.PN ---
<Seema Moreno - Last Filed: 12/20/16 07:57> Subjective - Date & Time of Evaluation Date of Evaluation: 12/20/16 Time of Evaluation: 07:35 - Subjective Subjective: Cardiology Progress Note for Dr. Truong Patient seen and examined at bedside. There were no acute overnight events as per nursing. Patient reports that yesterday she had a headache. It has improved today. She reports she was unable to get up and walk around yesterday due to the headache. She denies CP, SOB, n/v/d, numbness/tingling. Objective - Vital Signs/Intake and Output Vital Signs (last 24 hours): Temp Pulse Resp BP Pulse Ox 97.9 F 53 L 20 143/65 96 12/20/16 04:00 12/20/16 04:00 12/20/16 04:00 12/20/16 04:00 12/20/16 04:00 Intake and Output: 12/20/16 12/20/16 06:59 18:59 Intake Total 240 Balance 240 - Medications Medications: Current Medications Acetaminophen (Tylenol 325mg Tab) 650 mg PO Q6 PRN PRN Reason: Headache Last Admin: 12/19/16 10:35 Dose: 650 mg Levothyroxine Sodium (Synthroid) 25 mcg PO DAILY@0630 [facility] Last Admin: 12/20/16 06:26 Dose: 25 mcg Midodrine (Proamatine) 2.5 mg PO DAILY [facility] Last Admin: 12/19/16 10:34 Dose: 2.5 mg Topiramate (Topamax) 25 mg PO BID [facility] Zolpidem Tartrate (Ambien) 5 mg PO HS PRN PRN Reason: Insomnia Last Admin: 12/14/16 00:07 Dose: 5 mg - Labs Labs: 12/14/16 06:59 12/14/16 06:59 PT 12.0 SECONDS (9.7-12.2) 12/10/16 11:31 INR 1.1 12/10/16 11:31 APTT 33 SECONDS (21-34) 12/10/16 11:31 - Constitutional Appears: No Acute Distress - Head Exam Head Exam: ATRAUMATIC, NORMAL INSPECTION, NORMOCEPHALIC - Eye Exam Eye Exam: Normal appearance Pupil Exam: NORMAL ACCOMODATION - ENT Exam ENT Exam: Mucous Membranes Moist - Neck Exam Neck Exam: Normal Inspection - Cardiovascular Exam Cardiovascular Exam: REGULAR RHYTHM, +S1, +S2. absent: Gallop, Rubs, Murmur - GI/Abdominal Exam GI & Abdominal Exam: Soft, Normal Bowel Sounds. absent: Guarding, Rigid, Tenderness - Extremities Exam Extremities Exam: Full ROM, Normal Capillary Refill, Normal Inspection. absent : Calf Tenderness, Pedal Edema - Neurological Exam Neurological Exam: Alert, Awake, CN II-XII Intact, Oriented x3 - Psychiatric Exam Psychiatric exam: Normal Affect, Normal Mood - Skin Skin Exam: Dry, Intact, Normal Color, Warm Assessment and Plan - Assessment and Plan (Free Text) Assessment: This is a 61Y F with PMH vertigo, Meniere's disease, HTN, orthostatic hypotension, HTN, hypothyroidism and breast cancer (in remission) admitted for 1) Dizziness 2) Orthostatic Hypotension 3) HTN 4) Hypothyroidism 5) Headache Plan: - Continue Topamax and Tylenol for headache - Continue to monitor orthostatics - Continue to hold BP meds for orthostasis - Continue Midodrine once daily Case seen, reviewed and discussed with Dr. Alexi Moreno PGY1 <Brianne Truong - Last Filed: 01/29/17 03:57> Objective - Vital Signs/Intake and Output Vital Signs (last 24 hours): Temp Pulse Resp BP Pulse Ox 98.1 F 59 L 20 152/81 H 98 12/25/16 09:02 12/25/16 08:00 12/25/16 09:02 12/25/16 09:02 12/25/16 09:02 - Labs Labs: 12/14/16 06:59 12/14/16 06:59 PT 12.0 SECONDS (9.7-12.2) 12/10/16 11:31 INR 1.1 12/10/16 11:31 APTT 33 SECONDS (21-34) 12/10/16 11:31 Assessment and Plan (1) Orthostatic hypotension dysautonomic syndrome Status: Acute Attending/Attestation - Attestation I have personally seen and examined this patient.: Yes I have fully participated in the care of the patient.: Yes I have reviewed all pertinent clinical information, including history, physical exam and plan: Yes Notes (Text): 01/29/17 03:56 continue meds less headache today
--- NOTE | 2016-12-20 08:38 | PN ---
DATE: 12/20/2016 TIME OF EVALUATION: 7:20 a.m. NEUROLOGICAL PROBLEM: Orthostatic hypotension with headache. NEUROLOGIC: She is complaining of a headache, which she has been started for the last 2 days (since took off Topamax). The headache is persistent. Headache is mostly when she is lying down. Yesterday, she tried to walk herself. There is no sign of significant orthostatic changes. She also admits pressure was a little higher yesterday. PHYSICAL EXAMINATION: VITAL SIGNS: Blood pressure 143/65 lying down, sitting 111/78, standing up 103/ 72. Pulse rate is 53. The rest of the examination is unchanged to compare with yesterday's exam. She is tolerating okay with ProAmatine 2.5 mg once a day. I would like to keep her on. In the meantime improve her hydration. The patient also placed with Topamax 25 mg twice a day that can be continued that would also help her racing blood pressure, as well as her headache, which was working prior to stopping this medication. The patient is encouraged to walk around herself. Dariel Farah MD cc: [id number] TT: 12/20/2016 08:37:49 Confirmation # [id number] Dictation # [id number] MTDD
--- NOTE | 2016-12-20 11:11 | CP.PCM.PN ---
Subjective - Date & Time of Evaluation Date of Evaluation: 12/20/16 Time of Evaluation: 11:00 - Subjective Subjective: Still gets dizzy when standing up Objective - Vital Signs/Intake and Output Vital Signs (last 24 hours): Temp Pulse Resp BP Pulse Ox 98.5 F 50 L 20 165/76 H 96 12/20/16 08:47 12/20/16 08:47 12/20/16 08:47 12/20/16 08:47 12/20/16 08:47 Intake and Output: 12/20/16 12/20/16 06:59 18:59 Intake Total 240 Balance 240 - Medications Medications: Current Medications Acetaminophen (Tylenol 325mg Tab) 650 mg PO Q6 PRN PRN Reason: Headache Last Admin: 12/19/16 10:35 Dose: 650 mg Levothyroxine Sodium (Synthroid) 25 mcg PO DAILY@0630 [facility] Last Admin: 12/20/16 06:26 Dose: 25 mcg Midodrine (Proamatine) 2.5 mg PO DAILY [facility] Last Admin: 12/20/16 10:02 Dose: 2.5 mg Topiramate (Topamax) 25 mg PO BID [facility] Last Admin: 12/20/16 10:02 Dose: 25 mg Zolpidem Tartrate (Ambien) 5 mg PO HS PRN PRN Reason: Insomnia Last Admin: 12/14/16 00:07 Dose: 5 mg - Labs Labs: 12/14/16 06:59 12/14/16 06:59 PT 12.0 SECONDS (9.7-12.2) 12/10/16 11:31 INR 1.1 12/10/16 11:31 APTT 33 SECONDS (21-34) 12/10/16 11:31 - Respiratory Exam Additional comments: Lungs are clear - Cardiovascular Exam Cardiovascular Exam: REGULAR RHYTHM - Extremities Exam Additional comments: No edema Assessment and Plan - Assessment and Plan (Free Text) Assessment: Orthostatic hypotesion etiology unclear HTN Plan: Mx of orthostatic hypotension per Cardiology & Neuro Will see Pt as needed
--- NOTE | 2016-12-20 21:27 | CP.PCM.PN ---
Subjective - Date & Time of Evaluation Date of Evaluation: 12/20/16 Time of Evaluation: 21:26 - Subjective Subjective: pt had severe symptoms today headache nausea unable to stand BP variations very much noted I advised her to take the medications at 7am for proamitin will f/u Objective - Vital Signs/Intake and Output Vital Signs (last 24 hours): Temp Pulse Resp BP Pulse Ox 98.7 F 58 L 20 137/73 98 12/20/16 15:23 12/20/16 16:00 12/20/16 15:23 12/20/16 15:23 12/20/16 15:23 - Medications Medications: Current Medications Acetaminophen (Tylenol 325mg Tab) 650 mg PO Q6 PRN PRN Reason: Headache Last Admin: 12/20/16 14:30 Dose: 650 mg Levothyroxine Sodium (Synthroid) 25 mcg PO DAILY@0630 [facility] Last Admin: 12/20/16 06:26 Dose: 25 mcg Topiramate (Topamax) 25 mg PO BID [facility] Last Admin: 12/20/16 17:45 Dose: 25 mg Zolpidem Tartrate (Ambien) 5 mg PO HS PRN PRN Reason: Insomnia Last Admin: 12/14/16 00:07 Dose: 5 mg - Labs Labs: 12/14/16 06:59 12/14/16 06:59 PT 12.0 SECONDS (9.7-12.2) 12/10/16 11:31 INR 1.1 12/10/16 11:31 APTT 33 SECONDS (21-34) 12/10/16 11:31
[2016-12-21] MEDS: Levothyroxine 25 MCG TAB PO SCH (06:44)
--- NOTE | 2016-12-21 09:19 | CP.PCM.PN ---
<Seema Moreno - Last Filed: 12/21/16 09:16> Subjective - Date & Time of Evaluation Date of Evaluation: 12/21/16 Time of Evaluation: 08:00 - Subjective Subjective: Cardiology Progress Note for Dr. Truong Patient seen and examined at bedside. There were no acute overnight events. Yesterday the patient had a bad headache and was not able to get out of bed. As of this morning, her headache has improved. She denies CP, SOB, n/v/d, numbness/ tingling. Objective - Vital Signs/Intake and Output Vital Signs (last 24 hours): Temp Pulse Resp BP Pulse Ox 97.9 F 61 18 145/78 96 12/21/16 08:45 12/21/16 08:45 12/21/16 08:45 12/21/16 08:45 12/21/16 08:45 Intake and Output: 12/21/16 12/21/16 06:59 18:59 Intake Total 240 Balance 240 - Medications Medications: Current Medications Acetaminophen (Tylenol 325mg Tab) 650 mg PO Q6 PRN PRN Reason: Headache Last Admin: 12/20/16 14:30 Dose: 650 mg Levothyroxine Sodium (Synthroid) 25 mcg PO DAILY@0630 [facility] Last Admin: 12/21/16 06:44 Dose: 25 mcg Midodrine (Proamatine) 2.5 mg PO DAILY@0700 [facility] Last Admin: 12/21/16 06:44 Dose: 2.5 mg Topiramate (Topamax) 25 mg PO BID [facility] Last Admin: 12/20/16 17:45 Dose: 25 mg Zolpidem Tartrate (Ambien) 5 mg PO HS PRN PRN Reason: Insomnia Last Admin: 12/14/16 00:07 Dose: 5 mg - Labs Labs: 12/14/16 06:59 12/14/16 06:59 PT 12.0 SECONDS (9.7-12.2) 12/10/16 11:31 INR 1.1 12/10/16 11:31 APTT 33 SECONDS (21-34) 12/10/16 11:31 - Constitutional Appears: No Acute Distress - Head Exam Head Exam: ATRAUMATIC, NORMAL INSPECTION, NORMOCEPHALIC - Eye Exam Eye Exam: Normal appearance Pupil Exam: NORMAL ACCOMODATION - ENT Exam ENT Exam: Mucous Membranes Moist - Neck Exam Neck Exam: Full ROM, Normal Inspection - Respiratory Exam Respiratory Exam: Clear to Ausculation Bilateral, NORMAL BREATHING PATTERN. absent: Rales, Rhonchi, Wheezes - Cardiovascular Exam Cardiovascular Exam: REGULAR RHYTHM, +S1, +S2. absent: Gallop, Rubs, Murmur - GI/Abdominal Exam GI & Abdominal Exam: Soft, Normal Bowel Sounds. absent: Rigid, Tenderness, Mass , Rebound - Extremities Exam Extremities Exam: Full ROM, Normal Inspection. absent: Calf Tenderness, Pedal Edema - Neurological Exam Neurological Exam: Alert, Awake, CN II-XII Intact, Oriented x3 - Psychiatric Exam Psychiatric exam: Normal Affect, Normal Mood - Skin Skin Exam: Dry, Normal Color, Warm Assessment and Plan - Assessment and Plan (Free Text) Assessment: This is a 61Y F with PMH vertigo, Meniere's disease, HTN, orthostatic hypotension, HTN, hypothyroidism and breast cancer (in remission) admitted for 1) Dizziness 2) Orthostatic Hypotension 3) HTN 4) Hypothyroidism 5) Headache Plan: - Continue Midodrine - Continue to monitor Orthostatics - Continue Topamax - Continue Tylenol - Hold BP meds for orthostasis Case seen, reviewed and discussed with Dr. Alexi Moreno PGY1 <Brianne Truong - Last Filed: 01/29/17 03:56> Objective - Vital Signs/Intake and Output Vital Signs (last 24 hours): Temp Pulse Resp BP Pulse Ox 98.1 F 59 L 20 152/81 H 98 12/25/16 09:02 12/25/16 08:00 12/25/16 09:02 12/25/16 09:02 12/25/16 09:02 - Labs Labs: 12/14/16 06:59 12/14/16 06:59 PT 12.0 SECONDS (9.7-12.2) 12/10/16 11:31 INR 1.1 12/10/16 11:31 APTT 33 SECONDS (21-34) 12/10/16 11:31 Assessment and Plan (1) Orthostatic hypotension dysautonomic syndrome Status: Acute Attending/Attestation - Attestation I have personally seen and examined this patient.: Yes I have fully participated in the care of the patient.: Yes I have reviewed all pertinent clinical information, including history, physical exam and plan: Yes Notes (Text): 01/29/17 03:55 continue low dose midodrine no lasix encourage po fluids
--- NOTE | 2016-12-21 23:25 | CP.PCM.PN ---
Subjective - Date & Time of Evaluation Date of Evaluation: 12/21/16 Time of Evaluation: 23:50 - Subjective Subjective: Patient is still having episodes of dizziness. Today her symptoms are slightly better. Denies any nausea. Headache and heaviness noted Blood pressure: Standing the blood pressure 149/86. Lying down the blood pressure is 176/89 Patient overall situation is seen, will continue toward chest and will follow the patient Objective - Vital Signs/Intake and Output Vital Signs (last 24 hours): Temp Pulse Resp BP Pulse Ox 98.1 F 65 18 117/67 95 12/21/16 15:39 12/21/16 16:00 12/21/16 15:39 12/21/16 15:39 12/21/16 15:39 - Medications Medications: Current Medications Acetaminophen (Tylenol 325mg Tab) 650 mg PO Q6 PRN PRN Reason: Headache Last Admin: 12/20/16 14:30 Dose: 650 mg Levothyroxine Sodium (Synthroid) 25 mcg PO DAILY@0630 [facility] Last Admin: 12/21/16 06:44 Dose: 25 mcg Midodrine (Proamatine) 2.5 mg PO DAILY@0700 [facility] Last Admin: 12/21/16 06:44 Dose: 2.5 mg Topiramate (Topamax) 25 mg PO BID [facility] Last Admin: 12/21/16 17:25 Dose: 25 mg Zolpidem Tartrate (Ambien) 5 mg PO HS PRN PRN Reason: Insomnia Last Admin: 12/14/16 00:07 Dose: 5 mg - Labs Labs: 12/14/16 06:59 12/14/16 06:59 PT 12.0 SECONDS (9.7-12.2) 12/10/16 11:31 INR 1.1 12/10/16 11:31 APTT 33 SECONDS (21-34) 12/10/16 11:31
[2016-12-22] MEDS: Levothyroxine 25 MCG TAB PO SCH (06:51)
--- NOTE | 2016-12-22 08:29 | CP.PCM.PN ---
Subjective - Date & Time of Evaluation Date of Evaluation: 12/22/16 Time of Evaluation: 08:20 - Subjective Subjective: pt feeling better no cp Objective - Vital Signs/Intake and Output Vital Signs (last 24 hours): Temp Pulse Resp BP Pulse Ox 98.1 F 57 L 20 156/73 H 97 12/22/16 00:00 12/22/16 07:30 12/22/16 00:00 12/22/16 00:00 12/22/16 00:00 Intake and Output: 12/22/16 12/22/16 06:59 18:59 Intake Total 240 Balance 240 - Medications Medications: Current Medications Acetaminophen (Tylenol 325mg Tab) 650 mg PO Q6 PRN PRN Reason: Headache Last Admin: 12/20/16 14:30 Dose: 650 mg Levothyroxine Sodium (Synthroid) 25 mcg PO DAILY@0630 [facility] Last Admin: 12/22/16 06:51 Dose: 25 mcg Midodrine (Proamatine) 2.5 mg PO DAILY@0700 [facility] Last Admin: 12/22/16 06:49 Dose: 2.5 mg Topiramate (Topamax) 25 mg PO BID [facility] Last Admin: 12/21/16 17:25 Dose: 25 mg Zolpidem Tartrate (Ambien) 5 mg PO HS PRN PRN Reason: Insomnia Last Admin: 12/14/16 00:07 Dose: 5 mg - Labs Labs: 12/14/16 06:59 12/14/16 06:59 PT 12.0 SECONDS (9.7-12.2) 12/10/16 11:31 INR 1.1 12/10/16 11:31 APTT 33 SECONDS (21-34) 12/10/16 11:31 - Constitutional Appears: Well - Head Exam Head Exam: ATRAUMATIC - Eye Exam Eye Exam: Normal appearance - ENT Exam ENT Exam: Mucous Membranes Moist - Respiratory Exam Respiratory Exam: Clear to Ausculation Bilateral, NORMAL BREATHING PATTERN - Cardiovascular Exam Cardiovascular Exam: REGULAR RHYTHM - GI/Abdominal Exam GI & Abdominal Exam: Soft, Normal Bowel Sounds - Exam External exam: NORMAL EXTERNAL EXAM - Extremities Exam Extremities Exam: Normal Inspection. absent: Pedal Edema - Neurological Exam Neurological Exam: Alert, Awake - Psychiatric Exam Psychiatric exam: Normal Mood - Skin Skin Exam: Warm Assessment and Plan (1) Orthostatic hypotension dysautonomic syndrome Assessment & Plan: hold diuretic continue midodrine Status: Acute
--- NOTE | 2016-12-22 23:28 | CP.PCM.PN ---
Subjective - Date & Time of Evaluation Date of Evaluation: 12/22/16 Time of Evaluation: 23:28 - Subjective Subjective: Patient is still having symptoms of dizziness and heaviness in the head, the medication was changed, and the dose was adjusted. But the being the increasing symptoms I advised the patient to monitor more days. No chest pain or shortness of breath. But patient is upset but there is no improvement yet Objective - Vital Signs/Intake and Output Vital Signs (last 24 hours): Temp Pulse Resp BP Pulse Ox 97.4 F L 58 L 20 161/76 H 95 12/22/16 16:02 12/22/16 16:02 12/22/16 16:02 12/22/16 07:30 12/22/16 16:02 - Medications Medications: Current Medications Acetaminophen (Tylenol 325mg Tab) 650 mg PO Q6 PRN PRN Reason: Headache Last Admin: 12/20/16 14:30 Dose: 650 mg Levothyroxine Sodium (Synthroid) 25 mcg PO DAILY@0630 [facility] Last Admin: 12/22/16 06:51 Dose: 25 mcg Midodrine (Proamatine) 2.5 mg PO DAILY@0700 [facility] Last Admin: 12/22/16 06:49 Dose: 2.5 mg Topiramate (Topamax) 25 mg PO BID [facility] Last Admin: 12/22/16 19:18 Dose: 25 mg Zolpidem Tartrate (Ambien) 5 mg PO HS PRN PRN Reason: Insomnia Last Admin: 12/14/16 00:07 Dose: 5 mg - Labs Labs: 12/14/16 06:59 12/14/16 06:59 PT 12.0 SECONDS (9.7-12.2) 12/10/16 11:31 INR 1.1 12/10/16 11:31 APTT 33 SECONDS (21-34) 12/10/16 11:31 - Head Exam Additional comments: Patient is not in any distress. Chest good air entry bilaterally regular heart sound nontender abdomen. Patient's a orthostasis is again evaluated, still having severe changes in the blood pressure. Assessment and Plan (1) Dizziness Status: Acute (2) Hypertension Status: Acute (3) Orthostatic hypotension dysautonomic syndrome Assessment & Plan: Patient with a severe orthostatic hypotension. Autonomic nervous in balance. Unclear etiology, but currently being admitted for treatment manner. The treatment is still not optimized. Patient is still having episodes of low and high blood pressure, associated with the symptoms. Currently on midodrine 2.5 mg daily, will monitor the blood pressure again and will follow the patient Status: Acute
[2016-12-23] MEDS: Levothyroxine 25 MCG TAB PO SCH (06:57)
--- NOTE | 2016-12-23 18:48 | CP.PCM.PN ---
Subjective - Date & Time of Evaluation Date of Evaluation: 12/23/16 Time of Evaluation: 18:48 - Subjective Subjective: Patient is still having symptoms of dizziness, today slightly better than yesterday, denies any nausea, but patient felt sleepy the whole day. Eating well, no leg swelling. Using stockings Objective - Vital Signs/Intake and Output Vital Signs (last 24 hours): Temp Pulse Resp BP Pulse Ox 97.6 F 51 L 20 153/71 H 96 12/23/16 16:49 12/23/16 16:49 12/23/16 16:49 12/23/16 16:49 12/23/16 16:49 - Medications Medications: Current Medications Acetaminophen (Tylenol 325mg Tab) 650 mg PO Q6 PRN PRN Reason: Headache Last Admin: 12/20/16 14:30 Dose: 650 mg Levothyroxine Sodium (Synthroid) 25 mcg PO DAILY@0630 [facility] Last Admin: 12/23/16 06:57 Dose: 25 mcg Midodrine (Proamatine) 2.5 mg PO DAILY@0700 [facility] Last Admin: 12/23/16 06:57 Dose: 2.5 mg Topiramate (Topamax) 25 mg PO BID [facility] Last Admin: 12/23/16 18:33 Dose: 25 mg Zolpidem Tartrate (Ambien) 5 mg PO HS PRN PRN Reason: Insomnia Last Admin: 12/14/16 00:07 Dose: 5 mg - Labs Labs: 12/14/16 06:59 12/14/16 06:59 PT 12.0 SECONDS (9.7-12.2) 12/10/16 11:31 INR 1.1 12/10/16 11:31 APTT 33 SECONDS (21-34) 12/10/16 11:31 - Head Exam Additional comments: Patient is having no headache. Chest bilateral good air entry regular heart sound nontender abdomen. Leg edema negative Assessment and Plan (1) Dizziness Status: Acute (2) Orthostatic hypotension dysautonomic syndrome Assessment & Plan: Patient with a severe orthostatic hypotension. Slight improvement today. We'll continue the current medical management at this time. We'll again plan to monitor orthostasis in the morning, the patient is stable possible discharge planning the morning Status: Acute (3) Vertigo Status: Acute
[2016-12-24] MEDS: Levothyroxine 25 MCG TAB PO SCH (06:03)
--- NOTE | 2016-12-24 08:36 | PN ---
DATE: 12/24/2016 VITAL SIGNS: Blood pressure 134/68 lying, sitting 116/75, standing 109/75. The patient denies any complaints over the weekend. The patient is tolerating medication as he has b een getting. No headache at present. The patient is hydrated well. The rest of the examination is unchanged to compare with my previous exam. The patient is neurologically cleared to be discharged if medically stable. Continue Topamax 25 mg t wice a day with ProAmatine 2.5 mg once a day. The patient also recommended to have proper hydration at home. The patient should be followed up with me as outpatient. Dariel Farah MD cc: [id number] TT: 12/24/2016 08:36:10 Confirmation # [id number] Dictation # [id number]
--- NOTE | 2016-12-24 11:14 | CP.PCM.PN ---
Subjective - Date & Time of Evaluation Date of Evaluation: 12/24/16 Time of Evaluation: 11:20 - Subjective Subjective: Feels better Objective - Vital Signs/Intake and Output Vital Signs (last 24 hours): Temp Pulse Resp BP Pulse Ox 98 F 60 18 134/68 97 12/24/16 07:15 12/24/16 07:30 12/24/16 07:15 12/24/16 07:15 12/24/16 07:15 - Medications Medications: Current Medications Acetaminophen (Tylenol 325mg Tab) 650 mg PO Q6 PRN PRN Reason: Headache Last Admin: 12/24/16 10:06 Dose: 650 mg Levothyroxine Sodium (Synthroid) 25 mcg PO DAILY@0630 [facility] Last Admin: 12/24/16 06:03 Dose: 25 mcg Midodrine (Proamatine) 2.5 mg PO DAILY@0700 [facility] Last Admin: 12/24/16 06:03 Dose: 2.5 mg Topiramate (Topamax) 25 mg PO BID [facility] Last Admin: 12/24/16 10:05 Dose: 25 mg Zolpidem Tartrate (Ambien) 5 mg PO HS PRN PRN Reason: Insomnia Last Admin: 12/14/16 00:07 Dose: 5 mg - Labs Labs: 12/14/16 06:59 12/14/16 06:59 PT 12.0 SECONDS (9.7-12.2) 12/10/16 11:31 INR 1.1 12/10/16 11:31 APTT 33 SECONDS (21-34) 12/10/16 11:31 Assessment and Plan - Assessment and Plan (Free Text) Assessment: Orthostatic hypotension Etiology unclear. Will order serum & urine immunofixation to r/o abnormal light chain production leading to amyloidosis Plan: S & U Immunofixation is ordered
--- NOTE | 2016-12-24 18:26 | CP.PCM.PN ---
<Steve Benton - Last Filed: 12/24/16 18:18> Subjective - Date & Time of Evaluation Date of Evaluation: 12/24/16 Time of Evaluation: 18:18 - Subjective Subjective: Cardiology Progress Note Dr. Truong Patient seen and examined at the bedside. No acute distress. No acute events overnight. Nursing staff reports no issues. The patient denies fever, chills, changes in vision/hearing, headache, chest pain, shortness of breath, abdominal pain, N/V/D/C, changes in bowel/bladder, and extremity paresthesias. Objective - Vital Signs/Intake and Output Vital Signs (last 24 hours): Temp Pulse Resp BP Pulse Ox 98 F 57 L 18 146/73 99 12/24/16 15:30 12/24/16 15:30 12/24/16 15:30 12/24/16 15:30 12/24/16 15:30 - Medications Medications: Current Medications Acetaminophen (Tylenol 325mg Tab) 650 mg PO Q6 PRN PRN Reason: Headache Last Admin: 12/24/16 10:06 Dose: 650 mg Levothyroxine Sodium (Synthroid) 25 mcg PO DAILY@0630 [facility] Last Admin: 12/24/16 06:03 Dose: 25 mcg Midodrine (Proamatine) 2.5 mg PO DAILY@0700 [facility] Last Admin: 12/24/16 06:03 Dose: 2.5 mg Topiramate (Topamax) 25 mg PO BID [facility] Last Admin: 12/24/16 17:56 Dose: 25 mg Zolpidem Tartrate (Ambien) 5 mg PO HS PRN PRN Reason: Insomnia Last Admin: 12/14/16 00:07 Dose: 5 mg - Labs Labs: 12/14/16 06:59 12/14/16 06:59 PT 12.0 SECONDS (9.7-12.2) 12/10/16 11:31 INR 1.1 12/10/16 11:31 APTT 33 SECONDS (21-34) 12/10/16 11:31 Assessment and Plan - Assessment and Plan (Free Text) Assessment: This is a 61Y F with PMH vertigo, Meniere's disease, HTN, orthostatic hypotension, HTN, hypothyroidism and breast cancer (in remission) admitted for 1) Dizziness 2) Orthostatic Hypotension 3) HTN 4) Hypothyroidism 5) Headache Plan: 1.) Hypotension/Syncope- likely 2/2 orthostasis - Orthostatic VS : Lying- 146/73 : Sitting- 138/84 : Standing- 119/76 - Continue Midodrine 2.5mg PO daily for inotropic and vasoconstrictive support - Hold BP meds for orthostasis - 12/11/16 EKG- sinus bradycardia 55bpm, norm axis, no st or t wave changes - continue further medical management as per the primary medical team Diego Benton PGY1 <Brianne Truong - Last Filed: 01/29/17 03:53> Objective - Vital Signs/Intake and Output Vital Signs (last 24 hours): Temp Pulse Resp BP Pulse Ox 98.1 F 59 L 20 152/81 H 98 12/25/16 09:02 12/25/16 08:00 12/25/16 09:02 12/25/16 09:02 12/25/16 09:02 - Labs Labs: 12/14/16 06:59 12/14/16 06:59 PT 12.0 SECONDS (9.7-12.2) 12/10/16 11:31 INR 1.1 12/10/16 11:31 APTT 33 SECONDS (21-34) 12/10/16 11:31 Attending/Attestation - Attestation I have personally seen and examined this patient.: Yes I have fully participated in the care of the patient.: Yes I have reviewed all pertinent clinical information, including history, physical exam and plan: Yes Notes (Text): 01/29/17 03:52 pt continue midodrine 2.5 orthostatic hypotension
--- NOTE | 2016-12-24 20:00 | CP.PCM.PN ---
Subjective - Date & Time of Evaluation Date of Evaluation: 12/24/16 Time of Evaluation: 22:52 - Subjective Subjective: still feeling the same symptoms. Dizziness. Episodes of nausea noted. Headache on and off. Objective - Vital Signs/Intake and Output Vital Signs (last 24 hours): Temp Pulse Resp BP Pulse Ox 98 F 57 L 18 146/73 99 12/24/16 15:30 12/24/16 15:30 12/24/16 15:30 12/24/16 15:30 12/24/16 15:30 - Medications Medications: Current Medications Acetaminophen (Tylenol 325mg Tab) 650 mg PO Q6 PRN PRN Reason: Headache Last Admin: 12/24/16 10:06 Dose: 650 mg Levothyroxine Sodium (Synthroid) 25 mcg PO DAILY@0630 [facility] Last Admin: 12/24/16 06:03 Dose: 25 mcg Midodrine (Proamatine) 2.5 mg PO DAILY@0700 [facility] Last Admin: 12/24/16 06:03 Dose: 2.5 mg Topiramate (Topamax) 25 mg PO BID [facility] Last Admin: 12/24/16 17:56 Dose: 25 mg Zolpidem Tartrate (Ambien) 5 mg PO HS PRN PRN Reason: Insomnia Last Admin: 12/14/16 00:07 Dose: 5 mg chest good air entry bilaterally normalheart sounds. - Labs Labs: 12/14/16 06:59 12/14/16 06:59 PT 12.0 SECONDS (9.7-12.2) 12/10/16 11:31 INR 1.1 12/10/16 11:31 APTT 33 SECONDS (21-34) 12/10/16 11:31 Assessment and Plan (1) Dizziness Status: Acute (2) Vertigo Status: Acute (3) Orthostatic hypotension dysautonomic syndrome Assessment & Plan: orthostatic hypertension stable at this time, on midodrine Status: Acute
[2016-12-25 01:08] VITALS: RESP 20; O2SAT 98
[2016-12-25 06:06] VITALS: PULSE 59
[2016-12-25] MEDS: Levothyroxine 25 MCG TAB PO SCH (06:07)
[2016-12-25 09:03] VITALS: BP 152/81; TEMP 98.1
--- NOTE | 2017-01-08 22:55 | CP.PCM.DIS ---
Provider - Provider Date of Admission: 12/12/16 15:38 Attending physician: Roderick Pool MD Time Spent in preparation of Discharge (in minutes): 45 Diagnosis - Discharge Diagnosis (1) Dizziness Status: Acute (2) Vertigo Status: Acute (3) Orthostatic hypotension dysautonomic syndrome Status: Acute Hospital Course - Lab Results Lab Results: Most Recent Lab Values WBC 7.2 K/uL (4.8-10.8) 12/14/16 06:59 RBC 4.29 Mil/uL (3.80-5.20) 12/14/16 06:59 Hgb 12.6 g/dL (11.0-16.0) 12/14/16 06:59 Hct 36.6 % (34.0-47.0) 12/14/16 06:59 MCV 85.3 fL (81.0-99.0) 12/14/16 06:59 MCH 29.4 pg (27.0-31.0) 12/14/16 06:59 MCHC 34.5 g/dL (33.0-37.0) 12/14/16 06:59 RDW 13.3 % (11.5-14.5) 12/14/16 06:59 Plt Count 284 K/uL (130-400) 12/14/16 06:59 MPV 7.6 fL (7.2-11.7) 12/14/16 06:59 Neut % (Auto) 48.6 % (50.0-75.0) L 12/14/16 06:59 Lymph % (Auto) 33.4 % (20.0-40.0) 12/14/16 06:59 Greene % (Auto) 11.1 % (0.0-10.0) H 12/14/16 06:59 Eos % (Auto) 5.7 % (0.0-4.0) H 12/14/16 06:59 Baso % (Auto) 1.2 % (0.0-2.0) 12/14/16 06:59 Neut # 3.5 K/uL (1.8-7.0) 12/14/16 06:59 Lymph # 2.4 K/uL (1.0-4.3) 12/14/16 06:59 Greene # 0.8 K/uL (0.0-0.8) 12/14/16 06:59 Eos # 0.4 K/uL (0.0-0.7) 12/14/16 06:59 Baso # 0.1 K/uL (0.0-0.2) 12/14/16 06:59 PT 12.0 SECONDS (9.7-12.2) 12/10/16 11:31 INR 1.1 12/10/16 11:31 APTT 33 SECONDS (21-34) 12/10/16 11:31 Sodium 143 mmol/L (132-148) 12/14/16 06:59 Potassium 3.7 mmol/L (3.6-5.2) 12/14/16 06:59 Chloride 101 mmol/L (98-107) 12/14/16 06:59 Carbon Dioxide 26 mmol/L (22-30) 12/14/16 06:59 Anion Gap 20 (10-20) 12/14/16 06:59 BUN 16 mg/dL (7-17) 12/14/16 06:59 Creatinine 0.8 MG/DL (0.7-1.2) 12/14/16 06:59 Est GFR ( Amer) > 60 12/14/16 06:59 Est GFR (Non-Af Amer) > 60 12/14/16 06:59 Random Glucose 76 mg/dL (65-105) 12/14/16 06:59 Calcium 8.9 mg/dl (8.6-10.4) 12/14/16 06:59 Total Bilirubin 0.5 mg/dL (0.2-1.3) 12/14/16 06:59 AST 19 U/L (14-36) 12/14/16 06:59 ALT 19 U/L (9-52) 12/14/16 06:59 Alkaline Phosphatase 67 U/L (38-126) 12/14/16 06:59 Troponin I 0.0150 ng/mL (0.00-0.120) 12/10/16 11:31 Total Protein 6.6 g/dL (6.3-8.3) 12/14/16 06:59 Albumin 3.7 g/dL (3.5-5.0) 12/14/16 06:59 Globulin 2.9 gm/dL (2.2-3.9) 12/14/16 06:59 Albumin/Globulin Ratio 1.3 (1.0-2.1) 12/14/16 06:59 Renin 0.46 ng/mL/h (0.25-5.82) 12/11/16 13:50 Aldosterone 3 ng/dL (()) 12/11/16 13:50 Aldosterone/Renin Ratio 6.0 Ratio (0.9-28.9) 12/11/16 13:50 TSH 3rd Generation 0.85 mIU/L (0.46-4.68) 12/11/16 13:50 Cortisol AM Sample 5.4 ug/dL (4.46-22.7) 12/12/16 06:10 Plas Tot Catecholamine 597 pg/mL (()) 12/11/16 13:50 Dopamine 33 pg/mL (()) 12/11/16 13:50 Plasma Epinephrine 43 pg/mL (()) 12/11/16 13:50 Norepinephrine 554 pg/mL (()) 12/11/16 13:50 Plasma Metanephrine <25 pg/mL (<=57) 12/13/16 19:52 Plasma Normetanephrine <25 pg/mL (<=148) 12/13/16 19:52 Plas Total Metaneph <50 pg/mL (<=205) 12/13/16 19:52 Urine Color Yellow (YELLOW) 12/13/16 15:25 Urine Clarity Clear (Clear) 12/13/16 15:25 Urine pH 6.0 (5.0-8.0) 12/13/16 15:25 Ur Specific Conway 1.014 (1.003-1.030) 12/13/16 15:25 Urine Protein Negative mg/dL (NEGATIVE) 12/13/16 15:25 Urine Glucose (UA) Normal mg/dL (Normal) 12/13/16 15:25 Urine Ketones Negative mg/dL (NEGATIVE) 12/13/16 15:25 Urine Blood 2+ (NEGATIVE) H 12/13/16 15:25 Urine Nitrate Negative (NEGATIVE) 12/13/16 15:25 Urine Bilirubin Negative (NEGATIVE) 12/13/16 15:25 Urine Urobilinogen Normal mg/dL (0.2-1.0) 12/13/16 15:25 Ur Leukocyte Esterase Neg Yoana/uL (Negative) 12/13/16 15:25 Urine WBC (Auto) 1 /hpf (0-5) 12/13/16 15:25 Urine RBC (Auto) 2 /hpf (0-3) 12/13/16 15:25 Ur Squamous Epith Cells < 1 /hpf (0-5) 12/13/16 15:25 Urine Total Volume 1225 mL/24 h (()) 12/11/16 14:10 Ur 24 Hour Volume 1225 mL/24 h (()) 12/11/16 14:10 Ur Epinephrine 24 Hr see note (()) 12/11/16 14:10 U Norepinephrine 24 Hr 14 mcg/24 h (15-100) L 12/11/16 14:10 Ur Dopamine 24 Hr 227 mcg/24 h (52-480) 12/11/16 14:10 Serum Immunofixation See note (()) 12/24/16 13:54 Urine Immunofixation See note (()) 12/24/16 22:39 - Hospital Course Hospital Course: 7-year-old female with history of breast cancer, history of hypertension, also history of Mnire's disease. patient hospitalized repeatedly with the dizziness. Tilt table test was positive. Given the symptoms are worsening hypertension especially standing advised the patient to get hospitalized. During the stay in the hospital multiple medication was attempted, neurology consultation was stopped and, also legal document specialist evaluation. Patient continues to have a symptoms of hypertension especially on standing severe orthostatic hypotension identified Patient initially started on Florinef, and Nitropaste showed some improvement. But symptoms have a continued to be present, neurology consultation was called. Medication was changed today to midodrine 2.5 mg the morning, closely monitored. Symptoms are stable. Patient is currently stable at this time, still having minimal changes in the blood pressure. Patient will be discharged home, she will follow-up as an outpatient. final diagnosis, severe resistant orthostatic hypotension. Information was given to the patient regarding this diagnosis. She will continue to wear stockings. midodrin2.5milligram in the morning. Nitroglycerin paste if needed at night. will follow the patient Discharge Exam - Head Exam Head Exam: ATRAUMATIC, NORMAL INSPECTION, NORMOCEPHALIC Discharge Plan - Discharge Medications Prescriptions: Midodrine [Proamatine] 2.5 mg PO DAILY #30 tab Levothyroxine [Synthroid] 25 mcg PO DAILY@0630 #30 tab Topiramate [Topamax] 25 mg PO BID #60 tab - Follow Up Plan Condition: STABLE Disposition: HOME/ ROUTINE Instructions: Levothyroxine (By mouth), Midodrine (By mouth), Topiramate (By mouth), Meniere Disease (DC), Vertigo (DC) Additional Instructions: Discharge home. Take medications as prescribed. Follow up with Dr. Pool in one week. Referrals: Brianne Truong MD [Staff Provider] - Kenney Linton MD [Staff Provider] - Mack Ratliff MD [Staff Provider] -
== END 2016-12-25 10:00 | disposition home or self-care (01) | DRG 312 ==
LOC: C.ER 09:43 → C.9E 12:21 → C.5T 19:14 → C.6T 12-11 16:36 → OBSVTOIN 12-12 15:38
PROVIDERS: ADMIT Internal Medicine; ATTEND Internal Medicine
PROC: 4A02XFZ Measurement of Cardiac Rhythm, External Approach (ICD-10-PCS; principal; 2016-12-11)
PROC: 4A03XB1 Measurement of Arterial Pressure, Peripheral, External Approach (ICD-10-PCS; 2016-12-11)
DX: I95.1 Orthostatic hypotension (principal); G20 Parkinson's disease; R42 Dizziness and giddiness; H81.09 Meniere's disease, unspecified ear; E03.9 Hypothyroidism, unspecified; I10 Essential (primary) hypertension; Z85.3 Personal history of malignant neoplasm of breast; Z90.11 Acquired absence of right breast and nipple; Z90.49 Acquired absence of other specified parts of digestive tract; Z92.21 Personal history of antineoplastic chemotherapy

== ENCOUNTER 2017-01-23 20:05 | Inpatient (IN) | payer OTHER ==
--- NOTE | 2017-01-23 20:55 | C.PDOC ---
History Of Present Illness The patient, a 61 y/o female, presents to the ED for evaluation of a headache which began yesterday. Patient states her headache is diffuse and located on both sides of her head. She also reports nausea. Patient denies fever, chills, photophobia, neck pain, extremity numbness/weakness. Chief Complaint (Nursing): Headache History Per: Patient History/Exam Limitations: no limitations Onset/Duration Of Symptoms: Hrs Current Symptoms Are (Timing): Still Present Quality: Aching Preceeding Symptoms: denies: Visual Disturbances, Known Migraine Symptoms Associated Symptoms: Nausea. 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 Constitutional: Negative for: Fever, Chills Eyes: Negative for: Other (photophobia ) Gastrointestinal: Positive for: Nausea. Negative for: Vomiting Musculoskeletal: Negative for: Neck Pain Neurological: Positive for: Headache (diffuse, on both sides of head ). Negative for: Weakness, Numbness Physical Exam - Physical Exam Appears: Non-toxic, No Acute Distress Skin: Normal Color, Warm, Dry Head: Atraumatic, Normacephalic, No Tenderness, No Swelling Eye(s): bilateral: Normal Inspection, PERRL, EOMI Oral Mucosa: Moist Neck: Normal ROM, Supple Chest: Symmetrical, No Deformity, No Tenderness Cardiovascular: Rhythm Regular, No Murmur Respiratory: Normal Breath Sounds, No Rales, No Rhonchi, No Wheezing Gastrointestinal/Abdominal: Soft, No Tenderness, No Guarding, No Rebound Back: Normal Inspection, No Vertebral Tenderness, No Paraspinal Tenderness Extremity: Normal ROM, Capillary Refill (less than 2 seconds ) Neurological/Psych: Oriented x3, Normal Speech, Normal Cognition, Other (no focal deficits ) Gait: Steady ED Course And Treatment - Laboratory Results Result Diagrams: 01/23/17 20:53 01/23/17 20:53 ECG: Interpreted By Me, Viewed By Me ECG Rhythm: Sinus Bradycardia ECG Interpretation: Normal Interpretation Of ECG: normal tracings, sinus bradycardia Rate From EC O2 Sat by Pulse Oximetry: 100 (on RA) Pulse Ox Interpretation: Normal - CT Scan/US head Other Rad Studies (CT/US): Read By Radiologist CT/US Interpretation: normal Progress Note: labs, EKG, and CT Head ordered and reviewed. Patient received Toradol IV and Zofran IV. Reevaluation Time: 21:51 (persisted to have head ache) Reassessment Condition: Unchanged Disposition Discussed With Dr.: Roderick Pool - Disposition Referrals: Roderick Pool MD [Primary Care Provider] - Disposition: HOSPITALIZED Disposition Time: 22:45 Condition: STABLE - Clinical Impression Clinical Impression: Headache - Scribe Statement The provider has reviewed the documentation as recorded by the Scribe (Melina Olivia) Provider Attestation: All medical record entries made by the Scribe were at my direction and personally dictated by me. I have reviewed the chart and agree that the record accurately reflects my personal performance of the history, physical exam, medical decision making, and the department course for this patient. I have also personally directed, reviewed, and agree with the discharge instructions and disposition.
[2017-01-23 21:09] LABS: BASO # 0.1 K/uL (0.0-0.2); BASO % 0.8 % (0.0-2.0); EOS # 0.1 K/uL (0.0-0.7); EOS % 1.9 % (0.0-4.0); HEMATOCRIT 37.7 % (34.0-47.0); LYMPH # 2.2 K/uL (1.0-4.3); LYMPH % 31.2 % (20.0-40.0); MEAN CORPUSCULAR HEMOGLOBIN 29.8 pg (27.0-31.0); MEAN PLATELET VOLUME 7.4 fL (7.2-11.7); MONO # 0.7 K/uL (0.0-0.8); MONO % 9.6 % (0.0-10.0); NRBC % 0.1 % (0.0-2.0); RED CELL DISTRIBUTION WIDTH 13.1 % (11.5-14.5); WHITE BLOOD COUNT 7.2 K/uL (4.8-10.8)
[2017-01-23 21:12] LABS: CHLORIDE 100 mmol/L (98-107)
[2017-01-23 21:13] LABS: POTASSIUM 3.5 mmol/L (3.6-5.2); SODIUM 137 mmol/L (132-148)
[2017-01-23 21:16] LABS: ALB/GLOB RATIO 1.4 (1.0-2.1); ALKALINE PHOSPHATASE 75 U/L (38-126); ALT/SGPT 19 U/L (9-52); AST/SGOT 21 U/L (14-36); BILIRUBIN,TOTAL 0.9 mg/dL (0.2-1.3); BLOOD UREA NITROGEN 18 mg/dL (7-17); CALCIUM 9.4 mg/dl (8.6-10.4); CARBON DIOXIDE 26 mmol/L (22-30); GFR AFRICAN-AMERICAN > 60; GLUCOSE,RANDOM 88 mg/dL (65-105); TOTAL PROTEIN 7.2 g/dL (6.3-8.3)
[2017-01-23] MEDS ORDERED: Sodium Chloride 0.45% 1,000 ML IV ONE (23:17)
[2017-01-23] MEDS: Sodium Chloride 0.45% 500ml 1,000 ML IV SCH (23:28)
[2017-01-24] MEDS: Levothyroxine 25 MCG TAB PO SCH (06:20)
--- NOTE | 2017-01-24 09:26 | CT ---
PROCEDURE: CT HEAD WITHOUT CONTRAST. HISTORY: Headache COMPARISON: MRI brain dated 01/17/2016 TECHNIQUE: Axial computed tomography images were obtained through the head/brain without intravenous contrast. Radiation dose: Total exam DLP = 886 mGy-cm. This CT exam was performed using one or more of the following dose reduction techniques: Automated exposure control, adjustment of the mA and/or kV according to patient size, and/or use of iterative reconstruction technique. FINDINGS: HEMORRHAGE: No intracranial hemorrhage. BRAIN: Mild cerebellar atrophy. No atrophy or chronic microvascular ischemic changes. VENTRICLES: Unremarkable. No hydrocephalus. CALVARIUM: Unremarkable. PARANASAL SINUSES: Unremarkable as visualized. No significant inflammatory changes. MASTOID AIR CELLS: Unremarkable as visualized. No inflammatory changes. OTHER FINDINGS: Tiny calcification at the skin level on image 56 on the right which may be chronic. Correlation for foreign body. IMPRESSION: No acute intracranial abnormality. Tiny calcification at the skin level image 56 superiorly on the right which may be chronic. Correlate for foreign body. These findings were preliminarily reported at 9:22 p.m. on 01/23/[address] Mikey Kuhn from [facility].
[2017-01-24] MEDS ORDERED: Potassium Chloride 20 mEq ER Tab PO ONE ×2 (15:15→17:00)
--- NOTE | 2017-01-24 16:37 | CARD ---
APPROVED REPORT EKG Measurement Heart [id number] <Conclusion> Sinus bradycardia Otherwise normal ECG
[2017-01-24] MEDS: Enoxaparin 40 mg Syringe SC SCH (17:43)
--- NOTE | 2017-01-24 19:03 | CP.PCM.HP ---
History of Present Illness - History of Present Illness History of Present Illness: worsening headache and dizziness History present illness: 61-year-old female with a history of Mnire's disease, hypertension, recurrent weakness. Patient came to the emergency room with increasing episodes of nausea headache vomiting and associated with the dizziness. Patient started having the symptoms of increasing dizziness and tinnitus recently. Patient has a chronic symptoms, but got worse within the last 2-3 days. patient recently hospitalized with worsening symptoms of orthostatic hypotension , initially treated with midodrine. She was doing okay as an outpatient for 2 weeks. But 2 days ago symptoms got worse, she started having more headache, last night got worse. And able to eat, associated with nausea, not able to eat well. Her blood pressure was very labile. Episodes of hypertension, low blood pressure. No chest pain. But dizziness noted. The emergency room patient was given Zofran, IV fluid but she persistently having symptoms, she needed hospitalization. Past medical history: Hypertension hypothyroidism tinnitus, Mnire's disease Allergy no known drug allergy Personal history: Nonsmoker nonalcoholic Family history noncontributory Allergies: No known drug allergy: Surgical history: Patient has a history of breast cancer surgery in the past Review of system noted from the chart On examination: Vital signs reviewed Chest bilateral good air entry, regular heart sound nontender abdomen [employer] DES[employer] alert awake oriented 3 no functional neurological deficit. Labs reviewed Assessment and recommendation: 61-year-old female with a history of hypertension and Mnire's disease tinnitus chronic hypothyroidism and depression came to the emergency room with increasing episodes of nausea and vomiting. worsening orthostasis. Worsening migraine. Severe headache. We'll get IV fluid. Control the blood pressuNeurological evaluation. We'll follow the patie Closely monitor the patient neurologically, uncontrolled hypertension. On medications. Continue the Zofran, IV fluid, will start the patient on prednisone. [employer] disease cannot be ruled out. Neurological evaluation if needed and will follow the patient Present on Admission - Present on Admission Any Indicators Present on Admission: No History of DVT/PE: No History of Uncontrolled Diabetes: No Urinary Catheter: No Decubitus Ulcer Present: No Past Patient History - Infectious Disease Hx of Infectious Diseases: None - Past Medical History & Family History Past Medical History?: Yes - Past Social History Smoking Status: Never Smoked - CARDIAC Hx Cardiac Disorders: Yes Hx Hypertension: Yes - PULMONARY Hx Respiratory Disorders: No - NEUROLOGICAL Hx Neurological Disorder: Yes Hx Dizziness: Yes Hx Syncope: Yes Hx Vertigo: Yes - HEENT Hx HEENT Problems: No - RENAL Hx Chronic Kidney Disease: No - ENDOCRINE/METABOLIC Hx Endocrine Disorders: Yes Hx Hypothyroidism: Yes - HEMATOLOGICAL/ONCOLOGICAL Hx Blood Disorders: Yes Hx Blood Transfusions: Yes Hx Blood Transfusion Reaction: No Hx Cancer: Yes (right breast) Hx Chemotherapy: Yes - INTEGUMENTARY Hx Dermatological Problems: No - MUSCULOSKELETAL/RHEUMATOLOGICAL Hx Musculoskeletal Disorders: Yes Hx Falls: Yes (Pt passed out 10/2016) - GASTROINTESTINAL Hx Gastrointestinal Disorders: No - GENITOURINARY/GYNECOLOGICAL Hx Genitourinary Disorders: No - PSYCHIATRIC Hx Psychophysiologic Disorder: No Hx Substance Use: No - SURGICAL HISTORY Hx Surgeries: Yes Hx Cholecystectomy: Yes (2004) - ANESTHESIA Hx Anesthesia: Yes Hx Anesthesia Reactions: No Hx Malignant Hyperthermia: No Meds Allergies/Adverse Reactions: Allergies Allergy/AdvReac Type Severity Reaction Status Date / Time No Known Allergies Allergy Verified 01/23/17 20:23 Results - Vital Signs Recent Vital Signs: Last Vital Signs Temp 98.4 F 01/24/17 16:00 Pulse 62 01/24/17 16:00 Resp 20 01/24/17 16:00 BP 112/71 01/24/17 16:00 Pulse Ox 96 01/24/17 16:00 - Labs Result Diagrams: 01/23/17 20:53 01/23/17 20:53
[2017-01-25] MEDS: Sodium Chloride 0.45% 500ml 1,000 ML IV SCH (01:17)
[2017-01-25] MEDS: Sodium Chloride 0.45% 1,000 ML IV SCH ×2 (03:20→16:45)
[2017-01-25] MEDS: Levothyroxine 25 MCG TAB PO SCH (07:05)
[2017-01-25 07:20] LABS: BASO # 0.1 K/uL (0.0-0.2); EOS # 0.2 K/uL (0.0-0.7); EOS % 3.2 % (0.0-4.0); HEMATOCRIT 35.1 % (34.0-47.0); LYMPH % 37.7 % (20.0-40.0); MEAN CELL VOLUME 85.2 fL (81.0-99.0); MEAN CORPUSCULAR HEMOGLOBIN 29.7 pg (27.0-31.0); MEAN CORPUSCULAR HGB CONC 34.9 g/dL (33.0-37.0); MEAN PLATELET VOLUME 7.7 fL (7.2-11.7); MONO # 0.5 K/uL (0.0-0.8); MONO % 9.8 % (0.0-10.0); NRBC % 0.1 % (0.0-2.0); RED CELL DISTRIBUTION WIDTH 13.1 % (11.5-14.5); WHITE BLOOD COUNT 5.3 K/uL (4.8-10.8)
[2017-01-25 07:43] LABS: CHLORIDE 104 mmol/L (98-107); POTASSIUM 3.5 mmol/L (3.6-5.2); SODIUM 138 mmol/L (132-148)
[2017-01-25 07:45] LABS: ALB/GLOB RATIO 1.3 (1.0-2.1); ALKALINE PHOSPHATASE 65 U/L (38-126); AST/SGOT 18 U/L (14-36); BILIRUBIN,TOTAL 0.3 mg/dL (0.2-1.3); BLOOD UREA NITROGEN 16 mg/dL (7-17); CARBON DIOXIDE 26 mmol/L (22-30); GFR AFRICAN-AMERICAN > 60; TOTAL PROTEIN 6.4 g/dL (6.3-8.3)
[2017-01-25 07:46] LABS: ALT/SGPT 26 U/L (9-52); CALCIUM 8.8 mg/dl (8.6-10.4); GLUCOSE,RANDOM 79 mg/dL (65-105); MAGNESIUM 1.9 mg/dL (1.6-2.3)
[2017-01-25 08:58] LABS: CORTISOL AM 10.6 ug/dL (4.46-22.7)
[2017-01-25] MEDS ORDERED: Enoxaparin 40 mg Syringe SC SCH (10:00)
[2017-01-25] MEDS: Enoxaparin 40 mg Syringe SC SCH (10:24)
[2017-01-25] MEDS ORDERED: Potassium Chloride 20 mEq ER Tab PO ONE ×2 (16:52→17:00)
--- NOTE | 2017-01-25 21:28 | CP.PCM.PN ---
Subjective - Date & Time of Evaluation Date of Evaluation: 01/25/17 Time of Evaluation: 21:28 - Subjective Subjective: Patient is still having episodes of headache, nausea. Blood pressure changes radiation noted. Poor intake. 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 oriented - Medications Medications: Current Medications Alprazolam (Xanax) 0.25 mg PO [facility] Stop: 01/31/17 22:01 Last Admin: 01/24/17 21:46 Dose: 0.25 mg Enoxaparin Sodium (Lovenox) 40 mg SC DAILY [facility] Last Admin: 01/25/17 10:24 Dose: 40 mg Levothyroxine Sodium (Synthroid) 25 mcg PO DAILY@0630 [facility] Last Admin: 01/25/17 07:05 Dose: 25 mcg Midodrine (Proamatine) 2.5 mg PO DAILY [facility] Last Admin: 01/25/17 10:23 Dose: 2.5 mg Topiramate (Topamax) 25 mg PO BID [facility] Last Admin: 01/25/17 18:42 Dose: 25 mg Tramadol HCl (Ultram) 25 mg PO TID PRN PRN Reason: Headache - Labs Labs: PT 11.9 SECONDS (9.7-12.2) 01/23/17 20:53 INR 1.0 01/23/17 20:53 APTT 32 SECONDS (21-34) 01/23/17 20:53 Assessment and Plan - Assessment and Plan (Free Text) Assessment: Patient with a severe orthostatic hypotension, and severe hypertension, unstable blood pressure. Severe headache, likely migraine. Patient is currently improving with medication. Still having nausea. Continue the current medical treatment. Neurological follow-up and evaluation
[2017-01-26] MEDS: Levothyroxine 25 MCG TAB PO SCH (05:42)
[2017-01-26] MEDS: Enoxaparin 40 mg Syringe SC SCH (09:17)
[2017-01-26] MEDS: Valproate 500 MG in Sodium Chloride 0.9% 100 ML IVPB SCH (09:44)
[2017-01-26] MEDS ORDERED: Gadodiamide 287 MG/ML VIAL (15ML) IV ONE (14:19)
--- NOTE | 2017-01-26 15:26 | CON ---
DATE: 01/26/2017 ATTENDING PHYSICIAN: Roderick Pool MD The patient's room #357, bed A. REASON FOR THE CONSULTATION: Headache. CHIEF COMPLAINT: The patient was brought into [facility] with a history of recurrent headache with increased blood pressure. From neurological point of view, I was called in to evaluate her for further management. HISTORY OF PRESENT ILLNESS: The patient is a 61-year-old right-handed female who is known to me from her previous hospitalization being diagnosed brainstem migraine being treated with Topamax and her orthostatic hypotension being treated with ProAmatine. The patient was improved significantly and she was discharged from her previous hospitalization. This time, she is presenting with recurrent headache for the last 2 days with increased blood pressure. She also has headache associated with phonophobia and dizziness, at times losing her balance. No loss of vision, no speech impairment. No complaining of neck pain. PAST MEDICAL HISTORY: Hypertension, anxiety disorder. PERSONAL HISTORY: Denies smoking or alcohol use. MEDICATIONS: Levothyroxine, topiramate, and midodrine. ALLERGIES: No known allergies. PHYSICAL EXAMINATION: VITAL SIGNS: Blood pressure 134/70, MAP 97, respiratory rate 16, temperature afebrile. Blood pressure has been normal. No evidence of orthostatic hypertension present. NECK: Supple. No carotid bruit. HEART: Sounds regular. CHEST: Fair air entry. EXTREMITIES: No edema in legs. NEUROLOGIC EXAMINATION: MENTAL STATUS EXAMINATION: She is awake, alert, oriented to person, place, and time. Speech is clear. Naming, repetition, fluency, comprehension all within normal. CRANIAL NERVE EXAMINATION: Visual field intact, pupil reactive. Extraocular movement normal. No nystagmus, no facial sensory deficit, no facial asymmetry. Hearing is normal. Tongue is midline. Good gag. MOTOR: Outstretched hand with eyes closed, no drift noted. Power is symmetric on either side. DEEP TENDON REFLEXES: Biceps, brachioradialis, triceps absent. Both knees are trace. Both ankles are absent. Plantars are downgoing. COORDINATION: [id number] test is intact. CONCLUSION: Upon reviewing her history and neurological examination, the patient is presenting with possible brainstem migraine. Medication can be titrated as she can tolerate. I do not. Other possible causes of spinal leak should be ruled out. I would like her to have MRI of the brain with and without gadolinium including cervical spine to rule out any meningeal enhancement or any structural cause for her recurrent headache. BLOOD WORKUP: WBC 5.3, hemoglobin 12.2, hematocrit 35.1, platelets 248. PT 11.9, INR 1.0, PTT 32. Sodium 137, potassium 3.5, chloride 100, bicarbonate 26 , BUN 18, creatinine 0.9, GFR more than 60. RECOMMENDATION: 1. Hydration and correct electrolytes. 2. I would like her to be given Depakote IV 500 mg depending on her comfort level with her headache. The dose can be titrated and I would like to keep her on Depakote and slowly taper her off of her Topamax. Her symptoms are possibly brainstem migraine. The patient can be reassured and treated symptomatically. I would not want her to be on any sympathomimetic drugs which could increase her blood pressure ( Blood Pressure is sensitive to medication). Follow orthostatic BP and Pulse rate changes every 8 hrs. The patient is advised to increase intake of water. I will discuss with her Attending Physicial. The patient will be followed closely with you. Dariel Farah MD cc: [id number] TT: 01/26/2017 15:25:28 Confirmation # [id number] Dictation # [id number] dn MTDD
--- NOTE | 2017-01-26 16:05 | MRI ---
PROCEDURE: MRI BRAIN WITH AND WITHOUT CONTRAST HISTORY: meningeal enhancement ? / mass COMPARISON: None. TECHNIQUE: Multiplanar, multisequence MR images of the brain were obtained with and without intravenous contrast enhancement. FINDINGS: HEMORRHAGE: None DWI: No evidence of an acute or early subacute infarction. BRAIN PARENCHYMA: No mass,mass effect or edema. No atrophy or chronic microvascular ischemic changes. ENHANCEMENT: No evidence of enhancing mass lesion in the brain. No evidence of significant enhancement in the meningeal and extra-axial space. VENTRICLES: Unremarkable. No hydrocephalus. CRANIUM: Unremarkable. ORBITS: Grossly unremarkable. PARANASAL SINUSES/MASTOIDS: Clear VASCULAR SYSTEM: Skull base flow voids intact. OTHER FINDINGS: None . IMPRESSION: No evidence of acute pathology in the brain. No evidence of enhancing mass lesion or abnormal in meningeal enhancement ..
--- NOTE | 2017-01-26 16:09 | MRI ---
PROCEDURE: MR CERVICAL SPINE WITH AND WITHOUT CONTRAST HISTORY: spinal pathologyv-/hnp COMPARISON: Comparison is made to the previous study dated 01/20/2016 TECHNIQUE: Multiecho multiplanar sequences were performed through the cervical spine with and without the use of intravenous contrast. FINDINGS: Normal lordotic curvature. Craniocervical junction unremarkable. Vertebral body heights preserved. No marrow signal abnormality. Normal cervical cord. No paraspinal abnormality. No abnormal enhancement C2-3: No disc herniation, spinal canal stenosis or neural foraminal narrowing. C3-4: No disc herniation, spinal canal stenosis or neural foraminal narrowing. C4-5: Again seen is small osteophyte disc bulging complex associated with posterior ligament and uncovertebral joint hypertrophy which resulting in mild spinal and neural foraminal narrowing. C5-C6: Again seen is small osteophyte disc bulging complex associated with posterior ligament hypertrophy which resulting in mild spinal and neural foraminal narrowing. C6-C7: No disc herniation, spinal canal stenosis or neuroforaminal narrowing. C7-T1: No disc herniation, spinal canal stenosis or neural foraminal narrowing. OTHER FINDINGS: None. IMPRESSION: Mild degenerative disc changes. Re- demonstration of small osteophyte disc bulging complex at C4-C5 and C5-C6 associated with posterior ligament hypertrophy which resulting in mild spinal and neural foraminal narrowing. No significant interval change compared to the previous exam.
[2017-01-27] MEDS: Levothyroxine 25 MCG TAB PO SCH (05:34)
[2017-01-27] MEDS: Valproate 500 MG in Sodium Chloride 0.9% 100 ML IVPB SCH (10:00)
[2017-01-27] MEDS: Enoxaparin 40 mg Syringe SC SCH (10:06)
--- NOTE | 2017-01-27 16:49 | CP.PCM.PN ---
Subjective - Date & Time of Evaluation Date of Evaluation: 01/26/17 Time of Evaluation: 16:48 - Subjective Subjective: Patient is still feeling episodes of dizziness, and the headache is better. Patient was seen by neurologist today, and vacation was adjusted unchanged. Currently patient is on Depakote. Neurologist is thinking probably migraine. No chest pain, no nausea vomiting. The blood pressure is somewhat stable than before Objective - Vital Signs/Intake and Output Vital Signs (last 24 hours): Temp Pulse Resp BP Pulse Ox 98.3 F 57 L 20 146/77 96 01/27/17 08:17 01/27/17 08:17 01/27/17 08:17 01/27/17 08:17 01/27/17 08:17 Intake and Output: 01/27/17 01/27/17 06:59 18:59 Intake Total 500 250 Balance 500 250 Chest good air entry bilaterally regular heart sound nontender abdomen [employer] alert awake oriented 3 no functional neurological deficit MRI of the brain nonspecific. Cervical spine is nonspecific also associated with osteoarthritis - Medications Medications: Current Medications Enoxaparin Sodium (Lovenox) 40 mg SC DAILY [facility] Last Admin: 01/27/17 10:06 Dose: 40 mg Fludrocortisone Acetate (Florinef) 0.1 mg PO DAILY [facility] Last Admin: 01/27/17 09:55 Dose: 0.1 mg Valproate Sodium 500 mg/ (Sodium Chloride) 105 mls @ 100 mls/hr IVPB DAILY [facility] Last Admin: 01/27/17 10:00 Dose: 100 mls/hr Levothyroxine Sodium (Synthroid) 25 mcg PO DAILY@0630 [facility] Last Admin: 01/27/17 05:34 Dose: 25 mcg Midodrine (Proamatine) 2.5 mg PO DAILY [facility] Last Admin: 01/27/17 09:55 Dose: 2.5 mg Topiramate (Topamax) 25 mg PO BID [facility] Last Admin: 01/27/17 09:55 Dose: 25 mg Tramadol HCl (Ultram) 25 mg PO TID PRN PRN Reason: Headache - Labs Labs: PT 11.9 SECONDS (9.7-12.2) 01/23/17 20:53 INR 1.0 01/23/17 20:53 APTT 32 SECONDS (21-34) 01/23/17 20:53 Assessment and Plan - Assessment and Plan (Free Text) Assessment: Patient with a severe orthostatic hypotension. Under postural hypertension. Associated with the headache. Patient is currently on medications. Neurological consultation appreciated. 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 Previous disease. History of hypo-and hypertension. Continue the current treatment. Discontinue Xanax. Taper off Topamax.
--- NOTE | 2017-01-27 16:52 | CP.PCM.PN ---
Subjective - Date & Time of Evaluation Date of Evaluation: 01/27/17 Time of Evaluation: 16:51 - Subjective Subjective: Patient blood pressure today is somewhat better. Less orthostatic changes noted today. But patient is complaining of increasing sleepiness, drowsiness, poorly eating today. Updated is poor otherwise. No abdominal pain. No leg swelling. Going to the bathroom normally. Headache is none negative, but complaining of increasing heaviness in the head. Patient was asking about the medication related to orthostatic hypotension. Currently patient is taking midodrine, Florinef Objective - Vital Signs/Intake and Output Vital Signs (last 24 hours): Temp Pulse Resp BP Pulse Ox 98.3 F 57 L 20 146/77 96 01/27/17 08:17 01/27/17 08:17 01/27/17 08:17 01/27/17 08:17 01/27/17 08:17 Intake and Output: 01/27/17 01/27/17 06:59 18:59 Intake Total 500 250 Balance 500 250 Chest good air entry bilaterally regular heart sound nontender abdomen no pedal edema [employer] alert awake oriented 3 no functional neurological deficit - Medications Medications: Current Medications Enoxaparin Sodium (Lovenox) 40 mg SC DAILY [facility] Last Admin: 01/27/17 10:06 Dose: 40 mg Fludrocortisone Acetate (Florinef) 0.1 mg PO DAILY [facility] Last Admin: 01/27/17 09:55 Dose: 0.1 mg Valproate Sodium 500 mg/ (Sodium Chloride) 105 mls @ 100 mls/hr IVPB DAILY [facility] Last Admin: 01/27/17 10:00 Dose: 100 mls/hr Levothyroxine Sodium (Synthroid) 25 mcg PO DAILY@0630 [facility] Last Admin: 01/27/17 05:34 Dose: 25 mcg Midodrine (Proamatine) 2.5 mg PO DAILY [facility] Last Admin: 01/27/17 09:55 Dose: 2.5 mg Topiramate (Topamax) 25 mg PO BID [facility] Last Admin: 01/27/17 09:55 Dose: 25 mg Tramadol HCl (Ultram) 25 mg PO TID PRN PRN Reason: Headache - Labs Labs: PT 11.9 SECONDS (9.7-12.2) 01/23/17 20:53 INR 1.0 01/23/17 20:53 APTT 32 SECONDS (21-34) 01/23/17 20:53 Assessment and Plan - Assessment and Plan (Free Text) Assessment: Patient with a severe orthostatic hypotension. No neurological symptoms noted at this time. Headache improving. We'll discontinue IV Depakote, changing to by mouth. Taper off Topamax. Continue the current monitoring of the blood pressure. Physical therapy. We'll follow the patient
[2017-01-27] MEDS: Valproic Acid 250 mg/5 ml UD Cup PO SCH (17:55)
[2017-01-28] MEDS: Levothyroxine 25 MCG TAB PO SCH (05:44)
[2017-01-28 08:36] LABS: BASO # 0.1 K/uL (0.0-0.2); BASO % 1.3 % (0.0-2.0); EOS # 0.3 K/uL (0.0-0.7); EOS % 5.2 % (0.0-4.0); HEMATOCRIT 36.9 % (34.0-47.0); LYMPH # 2.1 K/uL (1.0-4.3); LYMPH % 36.1 % (20.0-40.0); MEAN CELL VOLUME 85.3 fL (81.0-99.0); MEAN CORPUSCULAR HEMOGLOBIN 29.2 pg (27.0-31.0); MEAN CORPUSCULAR HGB CONC 34.2 g/dL (33.0-37.0); MEAN PLATELET VOLUME 7.9 fL (7.2-11.7); MONO # 0.6 K/uL (0.0-0.8); WHITE BLOOD COUNT 5.7 K/uL (4.8-10.8)
[2017-01-28 08:53] LABS: CHLORIDE 102 mmol/L (98-107); POTASSIUM 3.4 mmol/L (3.6-5.2); SODIUM 139 mmol/L (132-148)
[2017-01-28 08:55] LABS: BILIRUBIN,TOTAL 0.6 mg/dL (0.2-1.3); GFR AFRICAN-AMERICAN > 60
[2017-01-28 08:56] LABS: ALB/GLOB RATIO 1.3 (1.0-2.1); ALKALINE PHOSPHATASE 64 U/L (38-126); ALT/SGPT 24 U/L (9-52); AST/SGOT 25 U/L (14-36); BLOOD UREA NITROGEN 23 mg/dL (7-17); CALCIUM 8.9 mg/dl (8.6-10.4); CARBON DIOXIDE 26 mmol/L (22-30); GLUCOSE,RANDOM 79 mg/dL (65-105); MAGNESIUM 2.1 mg/dL (1.6-2.3); TOTAL PROTEIN 6.7 g/dL (6.3-8.3)
[2017-01-28] MEDS: Tramadol 25 mg PO PRN ×2 (10:07→15:50)
[2017-01-28] MEDS: Valproic Acid 250 mg/5 ml UD Cup PO SCH ×2 (10:08→17:03)
[2017-01-28] MEDS: Enoxaparin 40 mg Syringe SC SCH (10:35)
[2017-01-28 17:36] VITALS: RESP 20
[2017-01-28] MEDS ORDERED: Potassium Chloride 20 mEq ER Tab PO ONE (18:00)
[2017-01-29] MEDS: Levothyroxine 25 MCG TAB PO SCH (06:14)
[2017-01-29] MEDS: Enoxaparin 40 mg Syringe SC SCH (09:33)
[2017-01-29] MEDS: Valproic Acid 250 mg/5 ml UD Cup PO SCH ×2 (09:34→17:10)
--- NOTE | 2017-01-29 11:37 | PN ---
DATE: 01/29/2017 NEUROLOGICAL PROBLEM: Brainstem migraine. PHYSICAL EXAMINATION: VITAL SIGNS: Blood pressure lying 143/83, sitting 138/86, standing 131/70. Pulse rate regular. There is no change orthostatically. NEUROLOGIC: The patient is sleepy. She had one big headache yesterday which was controlled with ice pack. Otherwise, her mentation is normal. The rest of the examinations are not changed to compare with the previous exam. The patient is encouraged to get out of the bed and encouraged to take of fluids. The reason for the Depakote been added is discussed with the patient. The patient is tolerating it well. If necessary, patient's valproic dose may be increased. This can be done as she tolerates down the road. In the meantime, she will continue ProAmatine. Dariel Farah MD cc: [id number] TT: 01/29/2017 11:36:42 Confirmation # [id number] Dictation # [id number] juan m LOZADA
[2017-01-29] MEDS ORDERED: Tramadol 25 mg PO PRN (22:03)
--- NOTE | 2017-01-29 22:04 | CP.PCM.PN ---
Subjective - Date & Time of Evaluation Date of Evaluation: 01/28/17 Time of Evaluation: 22:04 - Subjective Subjective: Patient is still having episodes of headache, also dizziness. The blood pressure changes somewhat less than before. She denies any nausea. But poor appetite. She's not feeling well otherwise. Urine negative. No symptoms in the bowel movements. Patient upon walking for some distance has increasing symptoms of headache and heaviness. Blood pressure is slightly better than before On examination: Orthostasis minimally noted. Chest good air entry bilaterally regular heart sound nontender abdomen. Denies any leg edema No labs recently. Assessment and recommendation: 61-year-old female with history of Mnire's disease, hypertension, hypothyroidism, breast cancer. Hospitalizations with multiple episodes of dizziness, and a syncopal. Complicated with the significant orthostasis. Unable to control with medication. Currently on treatment with midodrine and Florinef. We'll monitor the blood pressure and will follow the patient Objective - Vital Signs/Intake and Output Vital Signs (last 24 hours): Temp Pulse Resp BP Pulse Ox 98.5 F 67 20 149/79 96 01/29/17 15:05 01/29/17 15:05 01/29/17 15:05 01/29/17 15:05 01/29/17 15:05 Intake and Output: 01/29/17 01/30/17 18:59 06:59 Intake Total 200 Balance 200 - Medications Medications: Current Medications Enoxaparin Sodium (Lovenox) 40 mg SC DAILY [facility] Last Admin: 01/29/17 09:33 Dose: 40 mg Fludrocortisone Acetate (Florinef) 0.1 mg PO DAILY [facility] Last Admin: 01/29/17 09:34 Dose: 0.1 mg Levothyroxine Sodium (Synthroid) 25 mcg PO DAILY@0630 [facility] Last Admin: 01/29/17 06:14 Dose: 25 mcg Midodrine (Proamatine) 2.5 mg PO DAILY [facility] Last Admin: 01/29/17 09:34 Dose: 2.5 mg Tramadol HCl (Ultram) 25 mg PO BID PRN PRN Reason: Headache Valproate Sodium (Depakene Oral Soln) 250 mg PO BID [facility] Last Admin: 01/29/17 17:10 Dose: 250 mg - Labs Labs: 01/28/17 08:22 01/28/17 08:22 PT 11.9 SECONDS (9.7-12.2) 01/23/17 20:53 INR 1.0 01/23/17 20:53 APTT 32 SECONDS (21-34) 01/23/17 20:53
--- NOTE | 2017-01-29 22:06 | CP.PCM.PN ---
Subjective - Date & Time of Evaluation Date of Evaluation: 01/29/17 Time of Evaluation: 22:06 - Subjective Subjective: patient is today able to walk, but in the meantime she felt, tired. nausea noted. Poor appetite. No chest pain. Denies any dizziness. But headache noted., Blood pressure is somewha On examination: Orthostasis minimally noted. Chest good air entry bilaterally regular heart sound nontender abdomen. Denies any leg edema No labs recently. Assessment and recommendation: 61-year-old female with history of Mnire's disease, hypertension, hypothyroidism, breast cancer. Hospitalizations with multiple episodes of dizziness, and a syncopal. Complicated with the significant orthostasis. Unable to control with medication. Currently on treatment with midodrine and Florinef. We'll monitor the blood pressure and will follow the patient will discontinue Topamax, continue valproic acid. If patient is stable tomorro plan for discharge Objective - Vital Signs/Intake and Output Vital Signs (last 24 hours): Temp Pulse Resp BP Pulse Ox 98.5 F 67 20 149/79 96 01/29/17 15:05 01/29/17 15:05 01/29/17 15:05 01/29/17 15:05 01/29/17 15:05 Intake and Output: 01/29/17 01/30/17 18:59 06:59 Intake Total 200 Balance 200 - Medications Medications: Current Medications Enoxaparin Sodium (Lovenox) 40 mg SC DAILY [facility] Last Admin: 01/29/17 09:33 Dose: 40 mg Fludrocortisone Acetate (Florinef) 0.1 mg PO DAILY [facility] Last Admin: 01/29/17 09:34 Dose: 0.1 mg Levothyroxine Sodium (Synthroid) 25 mcg PO DAILY@0630 [facility] Last Admin: 01/29/17 06:14 Dose: 25 mcg Midodrine (Proamatine) 2.5 mg PO DAILY [facility] Last Admin: 01/29/17 09:34 Dose: 2.5 mg Tramadol HCl (Ultram) 25 mg PO BID PRN PRN Reason: Headache Valproate Sodium (Depakene Oral Soln) 250 mg PO BID [facility] Last Admin: 01/29/17 17:10 Dose: 250 mg - Labs Labs: 01/28/17 08:22 01/28/17 08:22 PT 11.9 SECONDS (9.7-12.2) 01/23/17 20:53 INR 1.0 01/23/17 20:53 APTT 32 SECONDS (21-34) 01/23/17 20:53
[2017-01-30] MEDS: Levothyroxine 25 MCG TAB PO SCH (06:08)
[2017-01-30] MEDS: Enoxaparin 40 mg Syringe SC SCH (10:03)
--- NOTE | 2017-01-30 20:13 | CP.PCM.PN ---
Subjective - Date & Time of Evaluation Date of Evaluation: 01/30/17 Time of Evaluation: 20:12 - Subjective Subjective: Patient is currently feeling same symptoms. Weakness and tiredness and easy fatigability still noted, occasional headache noted. Medically stable. Clinical examination unremarkable. Assessment and recommendation: 61-year-old female admitted with orthostasis, hypertension, severe headache, as well as hypertensive crisis. Will continue the current treatment. Discharge plan Objective - Vital Signs/Intake and Output Vital Signs (last 24 hours): Temp Pulse Resp BP Pulse Ox 98.7 F 60 20 134/81 95 01/30/17 16:00 01/30/17 16:00 01/30/17 16:00 01/30/17 16:00 01/30/17 16:00 Intake and Output: 01/30/17 01/31/17 18:59 06:59 Intake Total 600 Balance 600 - Medications Medications: Current Medications Divalproex Sodium (Depakote Er) 500 mg PO [facility] Enoxaparin Sodium (Lovenox) 40 mg SC DAILY [facility] Last Admin: 01/30/17 10:03 Dose: 40 mg Fludrocortisone Acetate (Florinef) 0.1 mg PO DAILY [facility] Last Admin: 01/30/17 10:03 Dose: 0.1 mg Levothyroxine Sodium (Synthroid) 25 mcg PO DAILY@0630 [facility] Last Admin: 01/30/17 06:08 Dose: 25 mcg Midodrine (Proamatine) 2.5 mg PO DAILY [facility] Last Admin: 01/30/17 10:03 Dose: 2.5 mg Tramadol HCl (Ultram) 25 mg PO BID PRN PRN Reason: Headache Last Admin: 01/30/17 15:11 Dose: 25 mg - Labs Labs: 01/28/17 08:22 01/28/17 08:22 PT 11.9 SECONDS (9.7-12.2) 01/23/17 20:53 INR 1.0 01/23/17 20:53 APTT 32 SECONDS (21-34) 01/23/17 20:53
[2017-01-30] MEDS: Divalproex 500 mg ER Tab PO SCH (21:55)
[2017-01-31] MEDS: Levothyroxine 25 MCG TAB PO SCH (06:30)
[2017-01-31] MEDS: Divalproex 500 mg ER Tab PO SCH (21:08)
[2017-02-01] MEDS: Levothyroxine 25 MCG TAB PO SCH (05:34)
[2017-02-01 08:22] VITALS: BP 124/76; PULSE 57; TEMP 98.1; O2SAT 97
--- NOTE | 2017-02-01 08:27 | PN ---
DATE: 01/30/2017 NEUROLOGICAL PROBLEM: Brainstem migraine. PHYSICAL EXAMINATION: VITAL SIGNS: Showed there is more than 20 points down in systolic blood pressure without any changes in diastolic blood pressure while she is standing. However, there is no drop in pulse rate. This just a drop in systolic blood pressure, which is not explained at present. NEUROLOGIC: The patient is tolerating well with the Depakote; however, she has some sleepiness following taking morning dose of Depakote. Otherwise, she is ambulatory at present. Examination is unchanged to compare with my previous exam. RECOMMENDATIONS: Her Depakote dose can be changed to 500 mg extended release, which can be done taken at nighttime. The other medication ProAmatine and Florinef can be given as recommended. When medically stable, the patient can be discharged and should have a followup visit as an outpatient. Dariel Farah MD cc: [id number] TT: 01/30/2017 18:39:30 Confirmation # [id number] Dictation # [id number] dn MTDD
[2017-02-01] MEDS: Enoxaparin 40 mg Syringe SC SCH (09:26)
[2017-02-01 14:59] LABS: CHLORIDE 101 mmol/L (98-107); POTASSIUM 3.2 mmol/L (3.6-5.2); SODIUM 142 mmol/L (132-148)
[2017-02-01 15:01] LABS: BLOOD UREA NITROGEN 18 mg/dL (7-17); CARBON DIOXIDE 29 mmol/L (22-30); GFR AFRICAN-AMERICAN > 60
[2017-02-01 15:02] LABS: CALCIUM 8.7 mg/dl (8.6-10.4); GLUCOSE,RANDOM 123 mg/dL (65-105)
[2017-02-01] MEDS ORDERED: Potassium Chloride 20 mEq ER Tab PO ONE (15:38)
[2017-02-01] MEDS: Divalproex 500 mg ER Tab PO SCH (21:08)
--- NOTE | 2017-03-06 09:22 | DS ---
HISTORY: A 61-year-old female with a history of Meniere's disease, hypertension, recurrent weakness, vertigo, dizziness, admitted to the hospital with slowly worsening shortness of breath, also slowly worsening dizziness and orthostatic hypotension. The patient was initially started on medications to improve the blood pressure, but the patient continues to have symptoms of dizziness and frequent fal ling, and episodes of worsening room spinning sensation. The patient came into the Emergency Room wi th the worsening symptoms. In the hospital, the patient was admitted in the medical floor and closel y patient was monitored telemetry-sweeney. Blood pressure was monitored. The patient's medication was adjusted according to the symptoms as well as the blood pressure. The patient continued to receive m idodrine as well as cortisol, IV fluid. The patient's condition slowly improved. The patient is cur rently receiving multiple medications including midodrine 2.5 mg once a day, Topamax 25 mg daily and Synthroid 25 mg. Clinically, if patient becomes stable she will be discharged home. She will follow up as an outpatient. Roderick Pool MD cc: [id number] TT: 03/06/2017 09:21:06 juan m
== END 2017-02-01 21:20 | disposition home or self-care (01) | DRG 103 ==
LOC: C.ER 20:05 → SUPCPDRO 20:05 → C.9E 22:47 → C.3T 23:54 → OBSVTOIN 01-25 14:38
PROVIDERS: ADMIT Internal Medicine; ATTEND Internal Medicine
DX: R51 Headache (principal); E03.9 Hypothyroidism, unspecified; I16.9 Hypertensive crisis, unspecified; I95.1 Orthostatic hypotension; Z85.3 Personal history of malignant neoplasm of breast; F41.9 Anxiety disorder, unspecified; H81.09 Meniere's disease, unspecified ear

== ENCOUNTER 2017-07-05 11:15 | Observation (INO) | payer OTHER ==
[2017-07-05 11:23] VITALS: BMI 26.6
[2017-07-05] MEDS ORDERED: Sodium Chloride 0.9% 1,000 ML IV ONE (12:33)
[2017-07-05 12:42] LABS: BASO # 0.1 K/uL (0.0-0.2); BASO % 0.9 % (0.0-2.0); EOS # 0.1 K/uL (0.0-0.7); EOS % 1.8 % (0.0-4.0); HEMATOCRIT 39.7 % (34.0-47.0); LYMPH # 1.6 K/uL (1.0-4.3); LYMPH % 26.8 % (20.0-40.0); MEAN CELL VOLUME 85.4 fL (81.0-99.0); MEAN CORPUSCULAR HEMOGLOBIN 29.6 pg (27.0-31.0); MEAN CORPUSCULAR HGB CONC 34.6 g/dL (33.0-37.0); MEAN PLATELET VOLUME 7.4 fL (7.2-11.7); MONO # 0.6 K/uL (0.0-0.8); MONO % 10.5 % (0.0-10.0); RED CELL DISTRIBUTION WIDTH 13.1 % (11.5-14.5); WHITE BLOOD COUNT 5.8 K/uL (4.8-10.8)
[2017-07-05 12:49] LABS: CHLORIDE 98 mmol/L (98-107); POTASSIUM 4.1 mmol/L (3.6-5.2); SODIUM 139 mmol/L (132-148)
[2017-07-05 12:51] LABS: BILIRUBIN,TOTAL 0.6 mg/dL (0.2-1.3); GFR AFRICAN-AMERICAN > 60
[2017-07-05 12:52] LABS: ALB/GLOB RATIO 1.1 (1.0-2.1); ALKALINE PHOSPHATASE 75 U/L (38-126); ALT/SGPT 37 U/L (9-52); AST/SGOT 29 U/L (14-36); BLOOD UREA NITROGEN 22 mg/dL (7-17); CARBON DIOXIDE 30 mmol/L (22-30); GLUCOSE,RANDOM 76 mg/dL (65-105); TOTAL PROTEIN 8.8 g/dL (6.3-8.3)
[2017-07-05 12:53] LABS: CALCIUM 9.9 mg/dl (8.6-10.4)
[2017-07-05] MEDS ORDERED: Sodium Chloride 0.9% 1,000 ML ONE (12:56)
--- NOTE | 2017-07-05 13:04 | C.PDOC ---
History Of Present Illness 62 year old female, with PMHx of HTN, hypothyroidism, presents to ED for evaluation of headache described as pressure, and room-spinning dizziness. Pt states that she feels as if her blood pressure is high. Notes dizziness is worse when sitting up or standing. Notes taking 2 Aleve today without improvement. Pt has been seen here multiple times in the past for similar symptoms. Notes h/o CT head, MRI head, and tilt tests. (+) nausea. Otherwise, denies chest pain, shortness of breath, vision change, fever, vomiting, abdominal pain, or any other associated symptoms at this time. Time Seen by Provider: 07/05/17 11:54 Chief Complaint (Nursing): High Blood Pressure History Per: Patient History/Exam Limitations: no limitations Onset/Duration Of Symptoms: Days Current Symptoms Are (Timing): Still Present Associated Symptoms: Dizziness, Headache (pressure). denies: Chest Pain, Dyspnea, Blurred Vision, Focal Weakness Recent travel outside of the [place]: No Additional History Per: Patient Past Medical History Reviewed: Historical Data, Nursing Documentation, Vital Signs Vital Signs: Last Vital Signs Temp 98.3 F 07/05/17 16:10 Pulse 64 07/05/17 16:10 Resp 20 07/05/17 16:10 BP 180/79 H 07/05/17 16:10 Pulse Ox 98 07/05/17 16:10 - Medical History PMH: HTN, Hypothyroidism Denies: Chronic Kidney Disease Surgical History: Cholecystectomy (2004) - [employer] Procedures MEASURE OF ARTERIAL PRESSURE, PERIPHERAL, PATROL MOTHER APPROACH (12/12/16) MEASUREMENT OF CARDIAC RHYTHM, EXTERNAL APPROACH (12/12/16) Family History: States: Unknown Family Hx - Social History Hx Tobacco Use: No Hx Alcohol Use: No Hx Substance Use: No - Immunization History Hx Tetanus Toxoid Vaccination: No Hx Influenza Vaccination: Yes Hx Pneumococcal Vaccination: Yes Review Of Systems Except As Marked, All Systems Reviewed And Found Negative. Constitutional: Negative for: Fever, Chills Eyes: Negative for: Vision Change Cardiovascular: Negative for: Chest Pain, Palpitations Respiratory: Negative for: Cough, Shortness of Breath Gastrointestinal: Positive for: Nausea. Negative for: Vomiting, Abdominal Pain , Diarrhea Neurological: Positive for: Headache, Dizziness. Negative for: Weakness, Numbness Physical Exam - Physical Exam Appears: Non-toxic, No Acute Distress Skin: Normal Color, Warm, Dry Head: Atraumatic, Normacephalic Eye(s): bilateral: Normal Inspection, EOMI Nose: Normal Oral Mucosa: Moist Neck: Normal ROM, Supple Chest: Symmetrical Cardiovascular: Rhythm Regular, No Murmur Respiratory: Normal Breath Sounds, No Rales, No Rhonchi, No Wheezing Gastrointestinal/Abdominal: Soft, No Tenderness Extremity: Normal ROM, No Pedal Edema Neurological/Psych: Oriented x3, Normal Speech, Normal Cognition, Normal Cranial Nerves (2-12 grossly intact), Normal Motor, Normal Sensation, Other (no focal deficits) Gait: Steady ED Course And Treatment - Laboratory Results Result Diagrams: 07/05/17 12:37 07/05/17 12:37 O2 Sat by Pulse Oximetry: 100 (RA) Pulse Ox Interpretation: Normal Progress Note: Blood work, EKG ordered and reviewed. Patient was given Norvasc, Reglan, Ultram, and IV fluids. On re-eval, patient is resting comfortably, is tolerating PO, and notes improvement of headache. Pt notes when she is laying down she feels well but when she sits or stands, she feels "pressure" and dizzy. Case discuussed with Dr Pool, agreed upon plan and admission. Disposition - Disposition Disposition: HOSPITALIZED Disposition Time: 16:00 Condition: STABLE - Clinical Impression Clinical Impression: Dizziness, Hypertension, Headache - PA / HOSPITAL ADMINISTRATOR / Resident Statement MD/DO has reviewed & agrees with the documentation as recorded. - Scribe Statement The provider has reviewed the documentation as recorded by the Scribe Derrick Olivia All medical record entries made by the Scribe were at my direction and personally dictated by me. I have reviewed the chart and agree that the record accurately reflects my personal performance of the history, physical exam, medical decision making, and the department course for this patient. I have also personally directed, reviewed, and agree with the discharge instructions and disposition.
[2017-07-05] MEDS ORDERED: Sodium Chloride 0.9% 1,000 ML IV SCH ×2 (22:15)
--- NOTE | 2017-07-05 23:45 | CP.PCM.HP ---
Past Patient History - Infectious Disease Hx of Infectious Diseases: None - Past Medical History & Family History Past Medical History?: Yes - Past Social History Smoking Status: Never Smoked - CARDIAC Hx Hypertension: Yes - PULMONARY Hx Respiratory Disorders: No - NEUROLOGICAL Hx Neurological Disorder: Yes Hx Dizziness: Yes Hx Syncope: Yes Hx Vertigo: Yes - HEENT Hx HEENT Problems: No - RENAL Hx Chronic Kidney Disease: No - ENDOCRINE/METABOLIC Hx Hypothyroidism: Yes - HEMATOLOGICAL/ONCOLOGICAL Hx Blood Disorders: Yes Hx Blood Transfusions: Yes Hx Blood Transfusion Reaction: No Hx Cancer: Yes (right breast) Hx Chemotherapy: Yes - INTEGUMENTARY Hx Dermatological Problems: No - MUSCULOSKELETAL/RHEUMATOLOGICAL Hx Musculoskeletal Disorders: No Hx Falls: No - GASTROINTESTINAL Hx Gastrointestinal Disorders: No - GENITOURINARY/GYNECOLOGICAL Hx Genitourinary Disorders: No - PSYCHIATRIC Hx Substance Use: No - SURGICAL HISTORY Hx Cholecystectomy: Yes (2004) - ANESTHESIA Hx Anesthesia: Yes Hx Anesthesia Reactions: No Hx Malignant Hyperthermia: No Has any member of the family had a problem w/ anesthesia?: No Meds Allergies/Adverse Reactions: Allergies Allergy/AdvReac Type Severity Reaction Status Date / Time No Known Allergies Allergy Verified 07/05/17 11:22 Results - Vital Signs Recent Vital Signs: Last Vital Signs Temp 98.3 F 07/05/17 16:10 Pulse 55 L 07/05/17 19:26 Resp 20 07/05/17 16:10 BP 180/79 H 07/05/17 16:10 Pulse Ox 100 07/05/17 18:14 - Labs Result Diagrams: 07/05/17 12:37 07/05/17 12:37 Labs: Laboratory Results - last 24 hr 07/05/17 07/05/17 12:37 12:37 WBC 5.8 RBC 4.65 Hgb 13.7 Hct 39.7 MCV 85.4 MCH 29.6 MCHC 34.6 RDW 13.1 Plt Count 231 MPV 7.4 Neut % (Auto) 60.0 Lymph % (Auto) 26.8 Falls % (Auto) 10.5 H Eos % (Auto) 1.8 Baso % (Auto) 0.9 Neut # 3.5 Lymph # 1.6 Falls # 0.6 Eos # 0.1 Baso # 0.1 Sodium 139 Potassium 4.1 Chloride 98 Carbon Dioxide 30 Anion Gap 15 BUN 22 H Creatinine 0.7 Est GFR ( Amer) > 60 Est GFR (Non-Af Amer) > 60 Random Glucose 76 Calcium 9.9 Total Bilirubin 0.6 AST 29 ALT 37 Alkaline Phosphatase 75 Total Protein 8.8 H Albumin 4.6 Globulin 4.3 H Albumin/Globulin Ratio 1.1
[2017-07-06 16:01] VITALS: RESP 20
[2017-07-07] MEDS: Levothyroxine 25 MCG TAB PO SCH (13:14)
[2017-07-08] MEDS: Levothyroxine 25 MCG TAB PO SCH (06:08)
[2017-07-08 08:51] VITALS: TEMP 98.3; O2SAT 96
[2017-07-08] MEDS ORDERED: Pantoprazole 40 mg EC Tab PO SCH (10:00)
[2017-07-08 10:23] VITALS: BP 138/74; PULSE 63
== END 2017-07-08 10:22 | disposition home or self-care (01) ==
LOC: C.ER 11:15 → C.9E 13:54 → C.6T 15:01
PROVIDERS: ADMIT Internal Medicine; ATTEND Internal Medicine
DX: I10 Essential (primary) hypertension (principal); R51 Headache; R42 Dizziness and giddiness; E03.9 Hypothyroidism, unspecified
CPT/HCPCS: 80053; 85025; 97162; 99284; C9113; G0378; G8978; G8979; G8980; J1644; J2765; J7040

== ENCOUNTER 2018-10-18 07:25 | Outpatient (CLI) | payer OTHER | END 2018-10-18 07:26 | disposition home or self-care (01) | LOC: C.LAB 07:25 | DX: I10 Essential (primary) hypertension (principal); K29.70 Gastritis, unspecified, without bleeding; S32.000S Wedge compression fracture of unspecified lumbar vertebra, sequela ==

== ENCOUNTER 2018-10-21 11:10 | Outpatient (CLI) | payer OTHER | END 2018-10-21 11:11 | disposition home or self-care (01) | LOC: C.MRIC 11:11 ==

== ENCOUNTER 2019-01-16 07:12 | Outpatient (CLI) | payer OTHER | END 2019-01-16 07:13 | disposition home or self-care (01) | LOC: C.CTH 07:12 ==